=== PATIENT | female | born 1975 | race African-American/Black ===

== ENCOUNTER 2016-08-11 23:00 | Emergency (ER) | payer MEDICAID ==
[~2016-08-11] VITALS: Ht 152.4 cm; Wt 77.3 kg
[~2016-08-11 23:00] MED LIST: ALPR-392 MT; AM10 PO; AMLO5TAB88 PO; ASPI81TA2 PO; ATOR20TA PO; CLOP75TA2 PO; FURO20TA4 PO; GABA-531 PO; GLUCAGON; INSU3INS6 SUBCUT; LOSA25TA12 PO; METO50TA5 PO; OMEGA 3 ETHYL ESTERS PO; PANT40TA4 PO; TRAM50TA3 PO
[2016-08-11] MEDS ORDERED: ACETAMINOPHEN WITH CODEINE 300/30MG TABLET PO ONE (23:45)
[2016-08-11 23:55] LABS: BASOPHILS % 0.8 % (0.0-2.0); CHLORIDE 104 mEq/L (98-107); EOSINOPHILS % 2.2 % (0.0-5.0); HEMATOCRIT. 32.7 % (36.0-48.0); HEMOGLOBIN. 10.8 g/dL (12.0-16.0); INDEX HEMOLYSI 1 (1-3); INDEX ICTERIC 1 (1-4); INDEX LIPEMIC 1 (1-3); LYMPHOCYTES % 20.7 % (20.0-50.0); MEAN CORPUSCULAR HEMOGLOBIN 28.5 pg (28.0-32.0); MEAN CORPUSCULAR HGB CONC 32.9 g/dL (31.0-37.0); MEAN CORPUSCULAR VOLUME 86.6 fL (81.0-99.0); MONOCYTES % 5.9 % (2.0-8.0); NEUTROPHILS % 70.4 % (40.0-76.0); PLATELET 252 x1000/uL (130-400); RED BLOOD CELL COUNT 3.77 mill/uL (4.2-5.4); RED CELL DISTRIBUTION WIDTH 13.9 % (11.6-14.6); WHITE BLOOD COUNT 15.2 x1000/uL (4.5-11.0)
[2016-08-12 00:04] LABS: ALANINE AMINOTRANSFERASE 24 IU/L (13-61); ALBUMIN 2.3 g/dL (3.4-5.0); ANION GAP 13; CALCIUM 8.4 mg/dL (8.5-10.1); CARBON DIOXIDE 28 mEq/L (21-32); UREA NITROGEN BLOOD 22 mg/dL (7-21); eGFR 17 mL/min (>60)
[2016-08-12 01:18] VITALS: BP 147/81
== END 2016-08-12 01:45 | disposition home or self-care (01) ==
LOC: ER 23:02
DX: T82.9XXA Unspecified complication of cardiac and vascular prosthetic device, implant and graft, initial encounter (principal); E11.22 Type 2 diabetes mellitus with diabetic chronic kidney disease; I12.9 Hypertensive chronic kidney disease with stage 1 through stage 4 chronic kidney disease, or unspecified chronic kidney disease; N18.9 Chronic kidney disease, unspecified; E78.00 Pure hypercholesterolemia, unspecified; I25.2 Old myocardial infarction; Z88.0 Allergy status to penicillin; Z79.899 Other long term (current) drug therapy; Z79.82 Long term (current) use of aspirin; Z79.4 Long term (current) use of insulin; Z99.2 Dependence on renal dialysis
CPT/HCPCS: 36415; 71010; 80053; 85025; 99285

== ENCOUNTER 2016-10-04 08:15 | Day surgery (SDC) | payer MEDICAID ==
[~2016-10-04] VITALS: Ht 152.4 cm; Wt 72.6 kg
[~2016-10-04 08:15] MED LIST changes: +ASPI-1160 PO; -ASPI81TA2 PO; +CLOP75TA15 PO; -CLOP75TA2 PO
[2016-10-04] MEDS ORDERED: SODIUM CHLORIDE 0.9% 500 ML IV ONE (09:00)
[2016-10-04] MEDS ORDERED: THROMBIN (BOVINE) 5000 UNITS/VIAL TOP ONE (09:14)
[2016-10-04] MEDS ORDERED: GELATIN SPONGE,ABSORBABLE SZ 100 ONE (09:14)
[2016-10-04] MEDS ORDERED: BACITRACIN ZINC 15GM TUBE TOP ONE (09:14)
[2016-10-04] MEDS ORDERED: BUPIVACAINE HCL/PF 0.5% (5MG/ML) 10ML ONE (09:15)
[2016-10-04] MEDS ORDERED: BACITRACIN 50,000 UNITS/VIAL ONE (09:15)
[2016-10-04] MEDS ORDERED: HEPARIN SODIUM 1,000 UNIT/1ML VIAL IV ONE (09:15)
[2016-10-04] MEDS ORDERED: NORMAL SALINE 0.9% 10 ML SYR ONE (09:15)
[2016-10-04] MEDS ORDERED: LIDOCAINE HCL 1% 20ML VIAL (Pyxis) INJ ONE (09:15)
[2016-10-04 09:22] LABS: HCG SCREEN NEGATIVE
[2016-10-04] MEDS ORDERED: CEFAZOLIN SODIUM 1000MG/VIAL ONE (10:31)
[2016-10-04] MEDS ORDERED: FENTANYL CITRATE/PF 50MCG/ML 2ML VIAL ONE (10:34)
[2016-10-04] MEDS ORDERED: PROPOFOL 200MG/20ML VIAL IV ONE (10:34)
[2016-10-04] MEDS ORDERED: ONDANSETRON HCL 4MG/2ML VIAL ONE (10:49)
[2016-10-04] MEDS ORDERED: METOCLOPRAMIDE HCL 10MG/2ML VIAL ONE (10:49)
[2016-10-04] MEDS ORDERED: PAPAVERINE HCL 30 MG/ML 2ML IV ONE (10:51)
[2016-10-04] MEDS ORDERED: ONDANSETRON HCL 4MG/2ML VIAL IV PRN (11:15)
[2016-10-04] MEDS ORDERED: HEPARIN 100 UNITS/1 ML VIAL IVF ONE (11:30)
[2016-10-04] MEDS ORDERED: FOLI1TAB87 PO (11:44)
[2016-10-04] MEDS ORDERED: HYDR-523 PO (11:44)
[2016-10-04] MEDS ORDERED: CLON0.2T PO (11:44)
[2016-10-04] MEDS ORDERED: [UNRECOGNIZED DRUG - OTHER] (11:44)
[2016-10-04] MEDS ORDERED: FOLI1CAP6 PO (11:44)
[2016-10-04] MEDS ORDERED: INSLAN SQ (11:44)
[2016-10-04] MEDS: HYDROMORPHONE HCL/PF 2MG/ML CPJ IV PRN ×2 (12:53→12:59)
[2016-10-04 12:59] VITALS: BP 126/77
[2016-10-04] MEDS ORDERED: HEPARIN SODIUM 1,000 UNIT/1ML VIAL IV SCH (13:15)
== END 2016-10-04 14:45 | disposition home or self-care (01) ==
LOC: OR 08:15
PROVIDERS: ATTEND Surgery Vascular Surgery
DX: N18.6 End stage renal disease (principal); E78.5 Hyperlipidemia, unspecified; E11.22 Type 2 diabetes mellitus with diabetic chronic kidney disease; Z99.2 Dependence on renal dialysis; I25.10 Atherosclerotic heart disease of native coronary artery without angina pectoris; Z86.73 Personal history of transient ischemic attack (TIA), and cerebral infarction without residual deficits; K21.9 Gastro-esophageal reflux disease without esophagitis; E66.3 Overweight
CPT/HCPCS: 36415; 36821; 80048; 82962; 84703; 93005; A4216; J0690; J1170; J1644; J2405; J2440; J2765; J3010; J3490; J7040; J2704

== ENCOUNTER 2016-10-04 22:10 | Emergency (ER) | payer MEDICAID ==
[~2016-10-04] VITALS: Ht 152.4 cm; Wt 71.0 kg
[~2016-10-04 22:10] MED LIST changes: +CLON0.2T PO; +FOLI1CAP6 PO; +FOLI1TAB87 PO; +HYDR-523 PO; +INSLAN SQ; +[UNRECOGNIZED DRUG - OTHER]
[2016-10-05 00:12] LABS: BASOPHILS % 0.4 % (0.0-2.0); EOSINOPHILS % 0.4 % (0.0-5.0); HEMATOCRIT. 28.7 % (36.0-48.0); HEMOGLOBIN. 9.6 g/dL (12.0-16.0); LYMPHOCYTES % 18.7 % (20.0-50.0); MEAN CORPUSCULAR HEMOGLOBIN 29.8 pg (28.0-32.0); MEAN CORPUSCULAR VOLUME 89.5 fL (81.0-99.0); MEAN PLATELET VOLUME 8.1 fl (7.4-10.4); MONOCYTES % 5.9 % (2.0-8.0); NEUTROPHILS % 74.6 % (40.0-76.0); PLATELET 182 x1000/uL (130-400); RED BLOOD CELL COUNT 3.21 mill/uL (4.2-5.4); RED CELL DISTRIBUTION WIDTH 16.8 % (11.6-14.6)
[2016-10-05 02:35] VITALS: BP 130/84
== END 2016-10-05 02:52 | disposition home or self-care (01) ==
LOC: ER 22:15
DX: T82.838A Hemorrhage due to vascular prosthetic devices, implants and grafts, initial encounter (principal); N18.6 End stage renal disease; E11.22 Type 2 diabetes mellitus with diabetic chronic kidney disease; Z99.2 Dependence on renal dialysis; Y84.1 Kidney dialysis as the cause of abnormal reaction of the patient, or of later complication, without mention of misadventure at the time of the procedure; Z79.4 Long term (current) use of insulin; Z79.82 Long term (current) use of aspirin; Z88.0 Allergy status to penicillin; Z88.8 Allergy status to other drugs, medicaments and biological substances
CPT/HCPCS: 36415; 80048; 85025; 99284; Z7610

== ENCOUNTER 2017-01-11 10:47 | Inpatient (IN) | payer MEDICAID ==
[~2017-01-11] VITALS: Ht 149.9 cm; Wt 70.8 kg
[~2017-01-11 10:47] MED LIST changes: -ALPR-392 MT; +ALPR-392 PO; -FOLI1CAP6 PO; -FURO20TA4 PO; -GLUCAGON; -LOSA25TA12 PO; +LOSA50TA20 PO; -OMEGA 3 ETHYL ESTERS PO
[2017-01-11] MEDS ORDERED: SODIUM CHLORIDE 0.9% 250 ML IV ONE (11:02)
[2017-01-11 11:58] LABS: BASOPHILS % 0.9 % (0.0-2.0); EOSINOPHILS % 0.9 % (0.0-5.0); HEMATOCRIT. 34.7 % (36.0-48.0); MEAN CORPUSCULAR HEMOGLOBIN 33.3 pg (28.0-32.0); MEAN CORPUSCULAR VOLUME 96.6 fL (81.0-99.0); MEAN PLATELET VOLUME 7.5 fl (7.4-10.4); MONOCYTES % 6.3 % (2.0-8.0); NEUTROPHILS % 68.9 % (40.0-76.0); PLATELET 205 x1000/uL (130-400); RED CELL DISTRIBUTION WIDTH 15.6 % (11.6-14.6)
[2017-01-11 12:09] LABS: CARBON DIOXIDE 31 mEq/L (21-32); CHLORIDE 96 mEq/L (98-107)
[2017-01-11 12:13] LABS: TROPONIN I 0.12 ng/mL (0.00-0.04)
[2017-01-11] MEDS ORDERED: HYDROCODONE/ACETAMINOPHEN 5/325MG TABLET PO ONE (14:00)
[2017-01-11 17:33] VITALS: BP 148/85
[2017-01-11] MEDS ORDERED: DEXTROSE 50% WATER 50ML SYRINGE IV PRN (18:30)
[2017-01-11] MEDS ORDERED: CLONIDINE 0.1MG TABLET PO PRN (18:45)
[2017-01-11] MEDS ORDERED: ONDANSETRON HCL 4MG/2ML VIAL IV PRN (18:45)
[2017-01-11 19:46] LABS: TROPONIN I 0.14 ng/mL (0.00-0.04)
[2017-01-11 20:00] VITALS: BP 157/78
[2017-01-11] MEDS ORDERED: INFLUENZA VIRUS VACCINE 0.5ML SYR IM ONE (20:30)
[2017-01-11] MEDS: BLOOD SUGAR DIAGNOSTIC STRIP TEST SCH (20:49)
[2017-01-11] MEDS: ATORVASTATIN CALCIUM 20MG TABLET PO SCH (20:49)
[2017-01-11] MEDS: GABAPENTIN 300MG CAPSULE PO SCH (21:12)
[2017-01-11] MEDS: INSULIN LISPRO 100 UNITS/ML SUBCUT SCH (21:15)
[2017-01-12] VITALS: BP 161/75
[2017-01-12 03:56] LABS: CREATINE KINASE MB FRACTION 0.7 ng/mL (0.5-3.6); TROPONIN I 0.12 ng/mL (0.00-0.04)
[2017-01-12 04:00] VITALS: BP 151/91
[2017-01-12] MEDS: GABAPENTIN 300MG CAPSULE PO SCH ×3 (06:05→22:45)
[2017-01-12] MEDS: INSULIN LISPRO 100 UNITS/ML SUBCUT SCH ×4 (06:21→20:43)
[2017-01-12] MEDS: BLOOD SUGAR DIAGNOSTIC STRIP TEST SCH ×4 (06:21→20:51)
[2017-01-12 07:05] LABS: BASOPHILS % 0.8 % (0.0-2.0); EOSINOPHILS % 2.8 % (0.0-5.0); HEMATOCRIT. 34.5 % (36.0-48.0); HEMOGLOBIN. 11.7 g/dL (12.0-16.0); LYMPHOCYTES % 46.8 % (20.0-50.0); MEAN CORPUSCULAR HEMOGLOBIN 33.5 pg (28.0-32.0); MEAN PLATELET VOLUME 7.7 fl (7.4-10.4); MONOCYTES % 8.1 % (2.0-8.0); NEUTROPHILS % 41.5 % (40.0-76.0); PLATELET 202 x1000/uL (130-400); RED BLOOD CELL COUNT 3.48 mill/uL (4.2-5.4)
[2017-01-12 08:00] VITALS: BP 148/76
[2017-01-12 08:15] LABS: CARBON DIOXIDE 29 mEq/L (21-32); CHLORIDE 97 mEq/L (98-107)
[2017-01-12] MEDS: AMLODIPINE 5MG TABLET PO SCH (08:35)
[2017-01-12] MEDS: CLOPIDOGREL 75MG TABLET PO SCH (08:35)
[2017-01-12] MEDS: HYDROCODONE/ACETAMINOPHEN 5/325MG TABLET PO PRN (08:36)
[2017-01-12] MEDS ORDERED: METOPROLOL TARTRATE 50MG TABLET PO SCH (09:00)
[2017-01-12] MEDS ORDERED: VANCOMYCIN 1 G PREMIX 200 ML IV SCH (10:00)
[2017-01-12 12:00] VITALS: BP 140/69
[2017-01-12] MEDS: ASPIRIN 81MG EC TABLET PO SCH (12:24)
[2017-01-12] MEDS ORDERED: SEVE800T8 PO (14:38)
[2017-01-12] MEDS ORDERED: FISH1CAP34 PO (14:48)
[2017-01-12 16:00] VITALS: BP 139/74
[2017-01-12 20:00] VITALS: BP 128/82
[2017-01-12 20:48] LABS: CLARITY URINE TURBID (CLEAR); COLOR URINE YELLOW (YELLOW); GLUCOSE URINE 1+ (NEGATIVE); KETONES URINE TRACE (NEGATIVE); LEUKOCYTE ESTERASE URINE 1+ (NEGATIVE); NITRITE URINE NEGATIVE (NEGATIVE); OCCULT BLOOD URINE NEGATIVE (NEGATIVE); PROTEIN URINE 4+ (NEGATIVE); SPECIFIC GRAVITY URINE 1.025 (1.005-1.030)
[2017-01-12] MEDS: ATORVASTATIN CALCIUM 20MG TABLET PO SCH (20:48)
[2017-01-12] MEDS: METOPROLOL TARTRATE 25MG TABLET PO SCH (20:49)
[2017-01-13] VITALS: BP 132/85
[2017-01-13 04:00] VITALS: BP 126/78
[2017-01-13] MEDS: HYDROCODONE/ACETAMINOPHEN 5/325MG TABLET PO PRN ×2 (04:36→15:30)
[2017-01-13 05:51] LABS: BASOPHILS % 0.8 % (0.0-2.0); EOSINOPHILS % 3.3 % (0.0-5.0); HEMATOCRIT. 33.9 % (36.0-48.0); HEMOGLOBIN. 11.6 g/dL (12.0-16.0); LYMPHOCYTES % 30.8 % (20.0-50.0); MEAN CORPUSCULAR HEMOGLOBIN 33.6 pg (28.0-32.0); MEAN CORPUSCULAR VOLUME 98.6 fL (81.0-99.0); MEAN PLATELET VOLUME 7.6 fl (7.4-10.4); MONOCYTES % 8.3 % (2.0-8.0); NEUTROPHILS % 56.8 % (40.0-76.0); PLATELET 226 x1000/uL (130-400); RED BLOOD CELL COUNT 3.44 mill/uL (4.2-5.4); RED CELL DISTRIBUTION WIDTH 15.7 % (11.6-14.6)
[2017-01-13] MEDS: GABAPENTIN 300MG CAPSULE PO SCH ×2 (06:25→13:25)
[2017-01-13] MEDS: INSULIN LISPRO 100 UNITS/ML SUBCUT SCH ×4 (06:26→20:36)
[2017-01-13] MEDS: BLOOD SUGAR DIAGNOSTIC STRIP TEST SCH ×4 (07:36→20:39)
[2017-01-13 08:00] VITALS: BP 131/82
[2017-01-13] MEDS: METOPROLOL TARTRATE 25MG TABLET PO SCH ×2 (09:00→20:40)
[2017-01-13] MEDS: ASPIRIN 81MG EC TABLET PO SCH (10:06)
[2017-01-13] MEDS: AMLODIPINE 5MG TABLET PO SCH (10:06)
[2017-01-13] MEDS: CLOPIDOGREL 75MG TABLET PO SCH (10:06)
[2017-01-13 20:00] VITALS: BP 108/52
[2017-01-13] MEDS: ATORVASTATIN CALCIUM 20MG TABLET PO SCH (20:34)
[2017-01-14] VITALS: BP 128/69
[2017-01-14] MEDS: GABAPENTIN 300MG CAPSULE PO SCH ×3 (02:27→14:37)
[2017-01-14] MEDS: INSULIN DETEMIR UD 100 UNITS/ML SYR SUBCUT SCH ×3 (02:29→21:17)
[2017-01-14 04:00] VITALS: BP 130/86
[2017-01-14] MEDS: BLOOD SUGAR DIAGNOSTIC STRIP TEST SCH ×4 (06:42→19:49)
[2017-01-14] MEDS: INSULIN LISPRO 100 UNITS/ML SUBCUT SCH ×4 (06:42→21:17)
[2017-01-14] MEDS: HYDROCODONE/ACETAMINOPHEN 5/325MG TABLET PO PRN ×3 (07:12→21:24)
[2017-01-14 08:00] VITALS: BP 143/76
[2017-01-14] MEDS: ASPIRIN 81MG EC TABLET PO SCH (08:13)
[2017-01-14] MEDS: CLOPIDOGREL 75MG TABLET PO SCH (08:13)
[2017-01-14] MEDS: AMLODIPINE 5MG TABLET PO SCH (08:14)
[2017-01-14] MEDS: METOPROLOL TARTRATE 25MG TABLET PO SCH ×2 (08:14→21:15)
[2017-01-14 09:19] LABS: BASOPHILS % 0.7 % (0.0-2.0); EOSINOPHILS % 3.9 % (0.0-5.0); HEMATOCRIT. 32.9 % (36.0-48.0); LYMPHOCYTES % 31.9 % (20.0-50.0); MEAN CORPUSCULAR HEMOGLOBIN 33.5 pg (28.0-32.0); MEAN CORPUSCULAR VOLUME 99.5 fL (81.0-99.0); MEAN PLATELET VOLUME 8.5 fl (7.4-10.4); MONOCYTES % 7.1 % (2.0-8.0); NEUTROPHILS % 56.4 % (40.0-76.0); PLATELET 149 x1000/uL (130-400); RED CELL DISTRIBUTION WIDTH 15.6 % (11.6-14.6)
[2017-01-14 12:00] VITALS: BP 141/68
[2017-01-14 16:00] VITALS: BP 117/65
[2017-01-14 20:00] VITALS: BP 134/60
[2017-01-14] MEDS: ATORVASTATIN CALCIUM 20MG TABLET PO SCH (21:14)
[2017-01-15] VITALS: BP 135/56
[2017-01-15 04:30] VITALS: BP 146/70
[2017-01-15] MEDS: HYDROCODONE/ACETAMINOPHEN 5/325MG TABLET PO PRN ×3 (05:50→20:57)
[2017-01-15] MEDS: INSULIN LISPRO 100 UNITS/ML SUBCUT SCH ×4 (05:51→20:59)
[2017-01-15] MEDS: BLOOD SUGAR DIAGNOSTIC STRIP TEST SCH ×4 (06:29→20:30)
[2017-01-15 06:53] LABS: EOSINOPHILS % 3.7 % (0.0-5.0); HEMATOCRIT. 30.5 % (36.0-48.0); HEMOGLOBIN. 10.5 g/dL (12.0-16.0); LYMPHOCYTES % 32.5 % (20.0-50.0); MEAN CORPUSCULAR HEMOGLOBIN 33.8 pg (28.0-32.0); MEAN CORPUSCULAR VOLUME 97.9 fL (81.0-99.0); MEAN PLATELET VOLUME 8.3 fl (7.4-10.4); MONOCYTES % 8.1 % (2.0-8.0); NEUTROPHILS % 54.7 % (40.0-76.0); PLATELET 173 x1000/uL (130-400); RED BLOOD CELL COUNT 3.11 mill/uL (4.2-5.4); RED CELL DISTRIBUTION WIDTH 15.6 % (11.6-14.6)
[2017-01-15 08:00] VITALS: BP 152/74
[2017-01-15] MEDS: CLOPIDOGREL 75MG TABLET PO SCH (08:22)
[2017-01-15] MEDS: GABAPENTIN 300MG CAPSULE PO SCH ×2 (08:23→20:56)
[2017-01-15] MEDS: ASPIRIN 81MG EC TABLET PO SCH (08:23)
[2017-01-15] MEDS: METOPROLOL TARTRATE 25MG TABLET PO SCH ×2 (08:23→20:56)
[2017-01-15] MEDS: AMLODIPINE 5MG TABLET PO SCH (08:23)
[2017-01-15] MEDS ORDERED: MORPHINE SULFATE 2 MG/ML CPJ (NOT FOR IM USE) IV PRN (10:00)
[2017-01-15] MEDS: MORPHINE SULFATE 4 MG/ML CPJ (NOT FOR IM USE) IV PRN ×2 (10:23→14:32)
[2017-01-15] MEDS: INSULIN DETEMIR UD 100 UNITS/ML SYR SUBCUT SCH ×2 (10:24→21:00)
[2017-01-15 14:00] VITALS: BP 150/79
[2017-01-15 20:00] VITALS: BP 146/67
[2017-01-15] MEDS: ATORVASTATIN CALCIUM 20MG TABLET PO SCH (20:56)
[2017-01-16] VITALS: BP 112/57
[2017-01-16 04:00] VITALS: BP 133/69
[2017-01-16] MEDS: BLOOD SUGAR DIAGNOSTIC STRIP TEST SCH ×4 (06:19→21:00)
[2017-01-16 06:57] LABS: INR 0.9; PROTHROMBIN TIME 9.4 sec (9.4-11.6)
[2017-01-16 07:11] LABS: BASOPHILS % 0.7 % (0.0-2.0); EOSINOPHILS % 2.6 % (0.0-5.0); HEMATOCRIT. 29.5 % (36.0-48.0); HEMOGLOBIN. 10.1 g/dL (12.0-16.0); LYMPHOCYTES % 24.6 % (20.0-50.0); MEAN CORPUSCULAR HEMOGLOBIN 33.8 pg (28.0-32.0); MEAN CORPUSCULAR VOLUME 98.4 fL (81.0-99.0); MEAN PLATELET VOLUME 8.5 fl (7.4-10.4); NEUTROPHILS % 63.1 % (40.0-76.0); PLATELET 191 x1000/uL (130-400); RED CELL DISTRIBUTION WIDTH 15.7 % (11.6-14.6)
[2017-01-16] MEDS: INSULIN LISPRO 100 UNITS/ML SUBCUT SCH ×4 (07:40→21:21)
[2017-01-16 08:00] VITALS: BP 140/88
[2017-01-16] MEDS: HYDROCODONE/ACETAMINOPHEN 5/325MG TABLET PO PRN (08:00)
[2017-01-16] MEDS: METOPROLOL TARTRATE 25MG TABLET PO SCH ×2 (09:00→21:20)
[2017-01-16] MEDS: AMLODIPINE 5MG TABLET PO SCH (09:00)
[2017-01-16] MEDS: CLOPIDOGREL 75MG TABLET PO SCH (10:38)
[2017-01-16] MEDS: ASPIRIN 81MG EC TABLET PO SCH (10:38)
[2017-01-16] MEDS: GABAPENTIN 300MG CAPSULE PO SCH ×2 (10:38→21:20)
[2017-01-16] MEDS: INSULIN DETEMIR UD 100 UNITS/ML SYR SUBCUT SCH ×2 (10:39→21:22)
[2017-01-16 11:30] VITALS: BP 140/82
[2017-01-16 16:00] VITALS: BP 138/74
[2017-01-16] MEDS: MORPHINE SULFATE 4 MG/ML CPJ (NOT FOR IM USE) IV PRN (19:53)
[2017-01-16 20:00] VITALS: BP 146/66
[2017-01-16] MEDS ORDERED: HYDROCODONE/ACETAMINOPHEN 5/325MG TABLET PO PRN (20:37)
[2017-01-16] MEDS: ATORVASTATIN CALCIUM 20MG TABLET PO SCH (21:19)
[2017-01-17] VITALS (19 sets, daily range): BP systolic 114–143; BP diastolic 55–94
[2017-01-17] MEDS: MORPHINE SULFATE 4 MG/ML CPJ (NOT FOR IM USE) IV PRN (04:05)
[2017-01-17] MEDS: INSULIN LISPRO 100 UNITS/ML SUBCUT SCH ×3 (06:37→17:05)
[2017-01-17] MEDS: BLOOD SUGAR DIAGNOSTIC STRIP TEST SCH ×3 (06:37→17:08)
[2017-01-17 06:41] LABS: BASOPHILS % 0.7 % (0.0-2.0); EOSINOPHILS % 2.2 % (0.0-5.0); HEMATOCRIT. 31.3 % (36.0-48.0); HEMOGLOBIN. 10.8 g/dL (12.0-16.0); LYMPHOCYTES % 21.7 % (20.0-50.0); MEAN CORPUSCULAR HEMOGLOBIN 33.9 pg (28.0-32.0); MEAN PLATELET VOLUME 8.7 fl (7.4-10.4); MONOCYTES % 10.8 % (2.0-8.0); NEUTROPHILS % 64.6 % (40.0-76.0); PLATELET 158 x1000/uL (130-400); RED BLOOD CELL COUNT 3.19 mill/uL (4.2-5.4); RED CELL DISTRIBUTION WIDTH 15.9 % (11.6-14.6)
[2017-01-17] MEDS: ASPIRIN 81MG EC TABLET PO SCH (08:57)
[2017-01-17] MEDS: METOPROLOL TARTRATE 25MG TABLET PO SCH (08:57)
[2017-01-17] MEDS: GABAPENTIN 300MG CAPSULE PO SCH (08:58)
[2017-01-17] MEDS: CLOPIDOGREL 75MG TABLET PO SCH (08:58)
[2017-01-17] MEDS: AMLODIPINE 5MG TABLET PO SCH (08:58)
[2017-01-17] MEDS ORDERED: CLINDAMYCIN 600 MG in DEXTROSE 5% WATER 50 ML IV NR (09:30)
[2017-01-17] MEDS: INSULIN DETEMIR UD 100 UNITS/ML SYR SUBCUT SCH (10:00)
[2017-01-17] MEDS ORDERED: LIDOCAINE HCL 1% 20ML VIAL (Pyxis) INJ ONE (10:38)
[2017-01-17] MEDS ORDERED: SODIUM BICARBONATE 4% (2.4MEQ) 5ML VIAL IV ONE (10:38)
[2017-01-17] MEDS ORDERED: HEPARIN 1000 UNITS/ML 10ML ONE (10:38)
[2017-01-17] MEDS ORDERED: IOHEXOL-300 100 ML BOTTLE ONE (10:48)
[2017-01-17] MEDS ORDERED: FENTANYL CITRATE/PF 50MCG/ML 2ML VIAL ONE ×2 (10:56→11:57)
[2017-01-17] MEDS ORDERED: HEPARIN 5000 UNITS/ML VIAL IV SCH (11:15)
[2017-01-17] MEDS ORDERED: MIDAZOLAM HCL 2 MG/2 ML VIAL ONE (11:36)
[2017-01-17] MEDS ORDERED: MIDAZOLAM HCL 5 MG/5 ML VIAL IV ONE (12:00)
[2017-01-17] MEDS ORDERED: FENTANYL CITRATE/PF 50MCG/ML 2ML VIAL IV ONE (12:15)
[2017-01-17] MEDS ORDERED: MIDAZOLAM HCL 2 MG/2 ML VIAL IV ONE (12:15)
== END 2017-01-17 19:50 | disposition home or self-care (01) | DRG 182 ==
LOC: ER 11:09 → CANRESERV 15:27 → ENRESERV 15:27 → 8WST 16:27 → ENRESERV 16:27
PROVIDERS: ADMIT Internal Medicine; ATTEND Internal Medicine
PROC: 057A3ZZ Dilation of Left Brachial Vein, Percutaneous Approach (ICD-10-PCS; principal; 2017-01-17)
PROC: 05CA3ZZ Extirpation of Matter from Left Brachial Vein, Percutaneous Approach (ICD-10-PCS; 2017-01-17)
DX: T82.818A Embolism due to vascular prosthetic devices, implants and grafts, initial encounter (principal); I12.0 Hypertensive chronic kidney disease with stage 5 chronic kidney disease or end stage renal disease; N18.6 End stage renal disease; E11.22 Type 2 diabetes mellitus with diabetic chronic kidney disease; Y83.2 Surgical operation with anastomosis, bypass or graft as the cause of abnormal reaction of the patient, or of later complication, without mention of misadventure at the time of the procedure; I25.118 Atherosclerotic heart disease of native coronary artery with other forms of angina pectoris; E44.1 Mild protein-calorie malnutrition; E11.40 Type 2 diabetes mellitus with diabetic neuropathy, unspecified; E78.5 Hyperlipidemia, unspecified; I69.354 Hemiplegia and hemiparesis following cerebral infarction affecting left non-dominant side; Z79.02 Long term (current) use of antithrombotics/antiplatelets; Z79.899 Other long term (current) drug therapy; Z87.891 Personal history of nicotine dependence; Z95.5 Presence of coronary angioplasty implant and graft; Z99.2 Dependence on renal dialysis; Z79.82 Long term (current) use of aspirin; Z79.4 Long term (current) use of insulin; Z88.0 Allergy status to penicillin; Z88.8 Allergy status to other drugs, medicaments and biological substances; Y92.89 Other specified places as the place of occurrence of the external cause; Z68.31 Body mass index [BMI] 31.0-31.9, adult
CPT/HCPCS: 36415; 36905; 76937; 80048; 80053; 81001; 82550; 82553; 82962; 83735; 83880; 84484; 85025; 85610; 85730; 87040; 87086; 90686; 93005; 93306; 96360; 99285; C1725; C1766; C1769; C1887; C2630; J1644; J1815; J2250; J2270; J2405; J3010; J3370; J3490; J7030; J7040; J7050; J7060; Q9967

== ENCOUNTER 2017-01-23 19:33 | Inpatient (IN) | payer MEDICAID, OTHER ==
[~2017-01-23] VITALS: Ht 165.1 cm; Wt 83.9 kg
[~2017-01-23 19:33] MED LIST changes: +FISH1CAP34 PO; +SEVE800T8 PO
[2017-01-23] MEDS ORDERED: MORPHINE SULFATE 4 MG/ML CPJ (NOT FOR IM USE) IV STA (21:30)
[2017-01-23] MEDS ORDERED: ONDANSETRON HCL 4MG/2ML VIAL IV STA (21:30)
[2017-01-23 21:39] LABS: BASOPHILS % 0.6 % (0.0-2.0); EOSINOPHILS % 1.7 % (0.0-5.0); HEMATOCRIT. 32.1 % (36.0-48.0); HEMOGLOBIN. 10.9 g/dL (12.0-16.0); LYMPHOCYTES % 27.4 % (20.0-50.0); MEAN CORPUSCULAR HEMOGLOBIN 33.3 pg (28.0-32.0); MEAN CORPUSCULAR VOLUME 98.4 fL (81.0-99.0); MEAN PLATELET VOLUME 7.9 fl (7.4-10.4); MONOCYTES % 5.8 % (2.0-8.0); NEUTROPHILS % 64.5 % (40.0-76.0); PLATELET 244 x1000/uL (130-400); RED BLOOD CELL COUNT 3.27 mill/uL (4.2-5.4); RED CELL DISTRIBUTION WIDTH 15.4 % (11.6-14.6)
[2017-01-23 21:40] LABS: HCG SCREEN NEGATIVE
[2017-01-23 22:15] LABS: PARTIAL THROMBOPLASTIN TIME 25.6 sec (23.4-31.0); PROTHROMBIN TIME 10.1 sec (9.4-11.6)
[2017-01-23 22:22] LABS: CARBON DIOXIDE 29 mEq/L (21-32); CHLORIDE 102 mEq/L (98-107); TROPONIN I 0.04 ng/mL (0.00-0.04)
[2017-01-23] MEDS ORDERED: MORPHINE SULFATE 2 MG/ML CPJ (NOT FOR IM USE) IV NR (23:00)
[2017-01-24 03:00] VITALS: BP 160/77
[2017-01-24 03:30] VITALS: BP 100/55
[2017-01-24] MEDS ORDERED: DEXTROSE 50% WATER 50ML SYRINGE IV PRN (06:45)
[2017-01-24] MEDS ORDERED: HYDROCODONE/ACETAMINOPHEN 5/325MG TABLET PO PRN (06:45)
[2017-01-24] MEDS: BLOOD SUGAR DIAGNOSTIC STRIP TEST SCH ×4 (07:00→20:49)
[2017-01-24] MEDS: INSULIN LISPRO 100 UNITS/ML SUBCUT SCH ×4 (07:50→20:49)
[2017-01-24 08:00] VITALS: BP 138/65
[2017-01-24 11:13] LABS: BASOPHILS % 0.8 % (0.0-2.0); EOSINOPHILS % 2.3 % (0.0-5.0); HEMATOCRIT. 34.9 % (36.0-48.0); HEMOGLOBIN. 11.7 g/dL (12.0-16.0); LYMPHOCYTES % 31.2 % (20.0-50.0); MEAN CORPUSCULAR HEMOGLOBIN 33.3 pg (28.0-32.0); MEAN CORPUSCULAR VOLUME 99.3 fL (81.0-99.0); MEAN PLATELET VOLUME 7.7 fl (7.4-10.4); MONOCYTES % 6.3 % (2.0-8.0); NEUTROPHILS % 59.4 % (40.0-76.0); PLATELET 283 x1000/uL (130-400); RED BLOOD CELL COUNT 3.51 mill/uL (4.2-5.4); RED CELL DISTRIBUTION WIDTH 15.8 % (11.6-14.6)
[2017-01-24 12:00] VITALS: BP 163/80
[2017-01-24 12:07] LABS: CARBON DIOXIDE 30 mEq/L (21-32); CHLORIDE 101 mEq/L (98-107)
[2017-01-24] MEDS: LACTULOSE 20G/30ML UDC PO PRN (13:04)
[2017-01-24] MEDS ORDERED: LIDOCAINE HCL 1% 20ML VIAL (Pyxis) INJ ONE (15:12)
[2017-01-24] MEDS ORDERED: SODIUM BICARBONATE 4% (2.4MEQ) 5ML VIAL IV ONE (15:12)
[2017-01-24 16:00] VITALS: BP 153/71
[2017-01-24 20:00] VITALS: BP 151/86
[2017-01-24] MEDS ORDERED: AMITRIPTYLINE 10MG TABLET PO SCH (21:00)
[2017-01-24] MEDS ORDERED: ATORVASTATIN CALCIUM 20MG TABLET PO SCH (21:00)
[2017-01-24] MEDS: CLONIDINE 0.2MG TABLET PO SCH (21:11)
[2017-01-24] MEDS: AMLODIPINE 5MG TABLET PO SCH (21:12)
[2017-01-24] MEDS: METOPROLOL TARTRATE 50MG TABLET PO SCH (21:12)
[2017-01-24] MEDS: GABAPENTIN 300MG CAPSULE PO SCH (21:12)
[2017-01-24] MEDS: INSULIN DETEMIR UD 100 UNITS/ML SYR SUBCUT SCH (21:24)
[2017-01-25] VITALS: BP 133/71
[2017-01-25 04:00] VITALS: BP 109/55
[2017-01-25] MEDS: GABAPENTIN 300MG CAPSULE PO SCH ×2 (06:22→14:05)
[2017-01-25] MEDS: BLOOD SUGAR DIAGNOSTIC STRIP TEST SCH ×2 (06:26→12:20)
[2017-01-25] MEDS: INSULIN LISPRO 100 UNITS/ML SUBCUT SCH ×2 (06:59→12:35)
[2017-01-25] MEDS ORDERED: PANTOPRAZOLE 40MG DR TABLET PO SCH (07:20)
[2017-01-25] MEDS ORDERED: LIDOCAINE HCL 1% 20ML VIAL (Pyxis) INJ ONE (07:37)
[2017-01-25] MEDS ORDERED: SODIUM BICARBONATE 4% (2.4MEQ) 5ML VIAL IV ONE (07:38)
[2017-01-25 08:00] VITALS: BP 110/55
[2017-01-25] MEDS: CLONIDINE 0.2MG TABLET PO SCH (08:30)
[2017-01-25] MEDS ORDERED: ASPIRIN 81MG TABLET PO SCH (09:00)
[2017-01-25] MEDS ORDERED: CLOPIDOGREL 75MG TABLET PO SCH (09:00)
[2017-01-25] MEDS: METOPROLOL TARTRATE 50MG TABLET PO SCH (09:00)
[2017-01-25] MEDS: AMLODIPINE 5MG TABLET PO SCH (09:00)
[2017-01-25] MEDS ORDERED: LOSARTAN POTASSIUM 50 MG TABLET PO SCH (09:00)
[2017-01-25] MEDS: SEVELAMER CARBONATE 800 MG TABLET PO SCH ×2 (09:16→12:35)
[2017-01-25] MEDS: INSULIN DETEMIR UD 100 UNITS/ML SYR SUBCUT SCH (09:23)
[2017-01-25] MEDS: LACTULOSE 20G/30ML UDC PO PRN (09:32)
[2017-01-25 12:00] VITALS: BP 114/49
[2017-01-25 15:21] VITALS: BP 114/49
== END 2017-01-25 16:00 | disposition home or self-care (01) | DRG 254 ==
LOC: ER 21:02 → 6EST 22:55 → EDBEDREQ 23:58 → ENRESERV 01-24 00:26
PROVIDERS: ADMIT Internal Medicine; ATTEND Internal Medicine
DX: K59.00 Constipation, unspecified (principal); I13.2 Hypertensive heart and chronic kidney disease with heart failure and with stage 5 chronic kidney disease, or end stage renal disease; N18.6 End stage renal disease; I42.9 Cardiomyopathy, unspecified; E11.22 Type 2 diabetes mellitus with diabetic chronic kidney disease; I50.9 Heart failure, unspecified; Z99.2 Dependence on renal dialysis; Z88.0 Allergy status to penicillin; Z88.8 Allergy status to other drugs, medicaments and biological substances; Z79.82 Long term (current) use of aspirin; Z79.4 Long term (current) use of insulin; Z79.02 Long term (current) use of antithrombotics/antiplatelets; Z79.899 Other long term (current) drug therapy
CPT/HCPCS: 36415; 36589; 74176; 80053; 82962; 83690; 83735; 84100; 84484; 84703; 85025; 85610; 85730; 93005; 96374; 96375; 99285; J1815; J2270; J2405; J3490

== ENCOUNTER 2017-06-16 06:04 | Inpatient (IN) | payer MEDICARE, MEDICAID ==
[~2017-06-16] VITALS: Ht 147.3 cm; Wt 73.0 kg
[~2017-06-16 06:04] MED LIST changes: +METO-539 PO; -METO50TA5 PO
[2017-06-16 07:14] LABS: BASOPHILS % 1.2 % (0.0-2.0); EOSINOPHILS % 2.3 % (0.0-5.0); HEMATOCRIT. 32.8 % (36.0-48.0); HEMOGLOBIN. 11.1 g/dL (12.0-16.0); LYMPHOCYTES % 22.3 % (20.0-50.0); MEAN CORPUSCULAR HEMOGLOBIN 32.4 pg (28.0-32.0); MEAN CORPUSCULAR VOLUME 95.9 fL (81.0-99.0); MEAN PLATELET VOLUME 8.2 fl (7.4-10.4); MONOCYTES % 6.4 % (2.0-8.0); NEUTROPHILS % 67.8 % (40.0-76.0); PLATELET 199 x1000/uL (130-400); RED BLOOD CELL COUNT 3.42 mill/uL (4.2-5.4); RED CELL DISTRIBUTION WIDTH 15.8 % (11.6-14.6)
[2017-06-16 07:27] LABS: INR 0.9; PROTHROMBIN TIME 9.5 sec (9.4-11.6)
[2017-06-16 07:30] LABS: CHLORIDE 95 mEq/L (98-107)
[2017-06-16] MEDS: NITROGLYCERIN 0.4MG TABLET SL SL PRN ×3 (09:05→09:24)
[2017-06-16] MEDS ORDERED: ONDANSETRON HCL 4MG/2ML VIAL IV ONE (09:30)
[2017-06-16] MEDS ORDERED: MORPHINE SULFATE 4 MG/ML CPJ (NOT FOR IM USE) IV ONE (09:30)
[2017-06-16] MEDS ORDERED: CLONIDINE 0.1MG TABLET PO PRN (11:00)
[2017-06-16] MEDS ORDERED: DOCUSATE SODIUM 100MG CAPSULE PO PRN (11:00)
[2017-06-16] MEDS ORDERED: ACETAMINOPHEN 325MG TABLET PO PRN (11:00)
[2017-06-16] MEDS ORDERED: HYDROCODONE/ACETAMINOPHEN 10/325MG TABLET PO PRN (14:46)
[2017-06-16] MEDS ORDERED: REGADENOSON 0.4 MG/5 ML IV ONE (16:45)
[2017-06-16] MEDS ORDERED: LORAZEPAM 0.5MG TABLET PO PRN (20:00)
[2017-06-16] MEDS ORDERED: NA PHOS,M-B/NA PHOS,DI-BA ENEMA 118ML PR PRN (20:00)
[2017-06-16] MEDS ORDERED: IPRATROPIUM/ALBUTEROL 0.5-3(2.5)MG/3ML NEB INH PRN (20:00)
[2017-06-16] MEDS ORDERED: MAGNESIUM/ALUMINUM HYDROXIDE/SIMETHICONE 30ML UDC PO PRN (20:00)
[2017-06-16] MEDS ORDERED: ONDANSETRON HCL 4MG/2ML VIAL IV PRN (20:00)
[2017-06-16] MEDS ORDERED: MORPHINE SULFATE 4 MG/ML CPJ (NOT FOR IM USE) IV PRN (20:00)
[2017-06-16] MEDS ORDERED: ATORVASTATIN CALCIUM 20MG TABLET PO SCH (21:00)
[2017-06-16 21:25] VITALS: BP 171/96
[2017-06-16] MEDS ORDERED: DEXTROSE 50% WATER 50ML SYRINGE IV PRN (23:15)
[2017-06-17] VITALS (7 sets, daily range): BP systolic 135–171; BP diastolic 58–84
[2017-06-17] MEDS: BLOOD SUGAR DIAGNOSTIC STRIP TEST SCH ×3 (06:17→16:17)
[2017-06-17] MEDS: INSULIN LISPRO 100 UNITS/ML SUBCUT SCH ×2 (06:58→12:50)
[2017-06-17 07:06] LABS: BASOPHILS % 0.8 % (0.0-2.0); EOSINOPHILS % 3.6 % (0.0-5.0); HEMATOCRIT. 29.8 % (36.0-48.0); LYMPHOCYTES % 39.5 % (20.0-50.0); MEAN CORPUSCULAR HEMOGLOBIN 32.3 pg (28.0-32.0); MEAN CORPUSCULAR VOLUME 96.6 fL (81.0-99.0); MEAN PLATELET VOLUME 8.4 fl (7.4-10.4); NEUTROPHILS % 49.1 % (40.0-76.0); PLATELET 188 x1000/uL (130-400); RED BLOOD CELL COUNT 3.09 mill/uL (4.2-5.4); RED CELL DISTRIBUTION WIDTH 15.9 % (11.6-14.6)
[2017-06-17 07:19] LABS: CHLORIDE 98 mEq/L (98-107)
[2017-06-17 07:41] LABS: HDL CHOLESTEROL 32 mg/dL (40-59); LDL CHOLESTEROL 115 mg/dL (5-100); T4 FREE 1.13 ng/dL (0.76-1.46)
[2017-06-17] MEDS ORDERED: AMLODIPINE 5MG TABLET PO SCH ×2 (09:00→13:27)
[2017-06-17] MEDS ORDERED: ASPIRIN 81MG EC TABLET PO SCH (09:00)
[2017-06-17] MEDS: CLOPIDOGREL 75MG TABLET PO SCH ×2 (09:03→16:22)
[2017-06-17] MEDS ORDERED: FERR325T6 PO (09:43)
[2017-06-17] MEDS ORDERED: MEDICATION NOT ON FORMULARY EA (Ferrous Sulfate 325 MG) PO SCH (11:15)
[2017-06-17] MEDS ORDERED: MEDICATION NOT ON FORMULARY EA (Folic Acid/Vitamin B Comp W-C (Rena-Vite Rx Tablet) 1 MG PO SCH (11:15)
[2017-06-17] MEDS ORDERED: INSULIN GLARGINE UD 100 UNITS/ML SYR SUBCUT SCH ×2 (11:30→22:00)
[2017-06-17] MEDS ORDERED: CLONIDINE 0.2MG TABLET PO SCH (13:29)
[2017-06-17] MEDS ORDERED: SEVELAMER CARBONATE 800 MG TABLET PO SCH (13:30)
[2017-06-17] MEDS ORDERED: FERROUS SULFATE 325MG TABLET PO SCH (13:34)
[2017-06-17] MEDS ORDERED: FOLIC ACID/VITAMIN B COMP W-C TABLET PO SCH (13:43)
[2017-06-17] MEDS ORDERED: GABAPENTIN 300MG CAPSULE PO SCH (14:00)
[2017-06-17 15:26] LABS: BASOPHILS % 0.6 % (0.0-2.0); EOSINOPHILS % 2.8 % (0.0-5.0); HEMATOCRIT. 36.2 % (36.0-48.0); HEMOGLOBIN. 12.2 g/dL (12.0-16.0); LYMPHOCYTES % 27.2 % (20.0-50.0); MEAN CORPUSCULAR HEMOGLOBIN 32.1 pg (28.0-32.0); MEAN CORPUSCULAR VOLUME 95.5 fL (81.0-99.0); MEAN PLATELET VOLUME 8.4 fl (7.4-10.4); MONOCYTES % 6.6 % (2.0-8.0); NEUTROPHILS % 62.8 % (40.0-76.0); PLATELET 192 x1000/uL (130-400); RED BLOOD CELL COUNT 3.79 mill/uL (4.2-5.4); RED CELL DISTRIBUTION WIDTH 15.6 % (11.6-14.6)
[2017-06-17] MEDS ORDERED: ATORVASTATIN CALCIUM 20MG TABLET PO SCH (21:00)
[2017-06-18] MEDS ORDERED: ASPIRIN 81MG TABLET PO SCH (09:00)
[2017-06-18] MEDS ORDERED: INSULIN GLARGINE UD 100 UNITS/ML SYR SUBCUT SCH (10:00)
== END 2017-06-17 17:40 | disposition home or self-care (01) | DRG 205 ==
LOC: ER 06:14 → 6WST 07:24 → EDBEDREQ 10:58 → ENRESERV 19:19
PROVIDERS: ADMIT Internal Medicine; ATTEND Internal Medicine
DX: M94.0 Chondrocostal junction syndrome [Tietze] (principal); N18.6 End stage renal disease; I13.2 Hypertensive heart and chronic kidney disease with heart failure and with stage 5 chronic kidney disease, or end stage renal disease; E11.22 Type 2 diabetes mellitus with diabetic chronic kidney disease; E11.40 Type 2 diabetes mellitus with diabetic neuropathy, unspecified; E46 Unspecified protein-calorie malnutrition; I08.1 Rheumatic disorders of both mitral and tricuspid valves; I69.351 Hemiplegia and hemiparesis following cerebral infarction affecting right dominant side; I69.354 Hemiplegia and hemiparesis following cerebral infarction affecting left non-dominant side; I25.10 Atherosclerotic heart disease of native coronary artery without angina pectoris; I50.9 Heart failure, unspecified; E66.9 Obesity, unspecified; I25.2 Old myocardial infarction; Z79.899 Other long term (current) drug therapy; Z79.02 Long term (current) use of antithrombotics/antiplatelets; Z99.2 Dependence on renal dialysis; Z79.82 Long term (current) use of aspirin; Z79.4 Long term (current) use of insulin; Z88.0 Allergy status to penicillin; Z88.8 Allergy status to other drugs, medicaments and biological substances; Z98.61 Coronary angioplasty status; Z68.33 Body mass index [BMI] 33.0-33.9, adult
CPT/HCPCS: 36415; 71045; 80048; 80053; 80061; 82962; 83690; 83880; 84439; 84481; 84484; 85025; 85610; 85730; 93005; 96365; 96375; 99285; J1815; J2270; J2405; J7030

== ENCOUNTER 2017-09-18 08:23 | Emergency (ER) | payer MEDICARE, MEDICAID ==
[~2017-09-18] VITALS: Ht 162.6 cm; Wt 100.0 kg
[~2017-09-18 08:23] MED LIST changes: -ALPR-392 PO; -AM10 PO; -CLOP75TA15 PO; +DOCU-138 MT; +FERR325T6 PO; -FISH1CAP34 PO; -FOLI1TAB87 PO; -HYDR-523 PO; +IBUP-2030 PO; +LORA2TAB2 MT; -LOSA50TA20 PO; -METO-539 PO; +MULT1TAB63 MT; -PANT40TA4 PO; -TRAM50TA3 PO; -[UNRECOGNIZED DRUG - OTHER]
[2017-09-18 09:22] LABS: BASOPHILS % 0.8 % (0.0-2.0); HEMATOCRIT. 33.8 % (36.0-48.0); HEMOGLOBIN. 11.4 g/dL (12.0-16.0); LYMPHOCYTES % 34.3 % (20.0-50.0); MEAN CORPUSCULAR VOLUME 92.3 fL (81.0-99.0); MEAN PLATELET VOLUME 7.9 fl (7.4-10.4); MONOCYTES % 8.7 % (2.0-8.0); NEUTROPHILS % 53.2 % (40.0-76.0); PLATELET 152 x1000/uL (130-400); RED BLOOD CELL COUNT 3.66 mill/uL (4.2-5.4); RED CELL DISTRIBUTION WIDTH 19.5 % (11.6-14.6)
[2017-09-18 12:46] VITALS: BP 141/81
== END 2017-09-18 12:59 | disposition home or self-care (01) ==
LOC: ER 08:23
DX: R20.2 Paresthesia of skin (principal); I12.0 Hypertensive chronic kidney disease with stage 5 chronic kidney disease or end stage renal disease; N18.6 End stage renal disease; E87.6 Hypokalemia; D64.9 Anemia, unspecified; M79.602 Pain in left arm; E11.22 Type 2 diabetes mellitus with diabetic chronic kidney disease; I69.354 Hemiplegia and hemiparesis following cerebral infarction affecting left non-dominant side; Z99.2 Dependence on renal dialysis; I25.2 Old myocardial infarction; Z79.82 Long term (current) use of aspirin; Z79.4 Long term (current) use of insulin; Z88.0 Allergy status to penicillin; Z88.8 Allergy status to other drugs, medicaments and biological substances; Z79.899 Other long term (current) drug therapy
CPT/HCPCS: 36415; 70450; 71045; 80048; 85025; 93005; 93922; 99285

== ENCOUNTER 2018-02-12 06:08 | Inpatient (IN) | payer MEDICARE, MEDICAID ==
[~2018-02-12] VITALS: Ht 147.3 cm; Wt 69.2 kg
[~2018-02-12 06:08] MED LIST changes: +FERR210T MT; +SIMV40TA5 MT; +TRAM50TA MT
[2018-02-12] MEDS ORDERED: HYDRALAZINE 20MG/ML VIAL IV ONE (06:30)
[2018-02-12 07:25] LABS: BASOPHILS % 0.8 % (0.0-2.0); EOSINOPHILS % 3.2 % (0.0-5.0); HEMATOCRIT. 30.5 % (36.0-48.0); HEMOGLOBIN. 10.8 g/dL (12.0-16.0); LYMPHOCYTES % 28.5 % (20.0-50.0); MEAN CORPUSCULAR HEMOGLOBIN 33.4 pg (28.0-32.0); MEAN CORPUSCULAR VOLUME 94.6 fL (81.0-99.0); MEAN PLATELET VOLUME 7.6 fl (7.4-10.4); MONOCYTES % 6.4 % (2.0-8.0); NEUTROPHILS % 61.1 % (40.0-76.0); PLATELET 214 x1000/uL (130-400); RED BLOOD CELL COUNT 3.22 mill/uL (4.2-5.4); RED CELL DISTRIBUTION WIDTH 15.1 % (11.6-14.6)
[2018-02-12 07:38] LABS: CHLORIDE 105 mEq/L (98-107)
[2018-02-12] MEDS ORDERED: ACETAMINOPHEN 325MG TABLET PO ONE (08:30)
[2018-02-12] MEDS ORDERED: DIPHENHYDRAMINE 50MG/ML VIAL IV PRN ×2 (09:30→17:00)
[2018-02-12] MEDS ORDERED: CLONIDINE 0.1MG TABLET PO PRN (09:30)
[2018-02-12] MEDS ORDERED: DOCUSATE SODIUM 100MG CAPSULE PO PRN (09:30)
[2018-02-12] MEDS ORDERED: MORPHINE SULFATE 4 MG/ML CPJ (NOT FOR IM USE) IV PRN (09:30)
[2018-02-12] MEDS ORDERED: HYDROCODONE/APAP 7.5/325MG 1 TAB TABLET PO PRN ×2 (09:30→13:15)
[2018-02-12] MEDS ORDERED: HYDRALAZINE 20MG/ML VIAL IV PRN (09:30)
[2018-02-12] MEDS ORDERED: MAGNESIUM/ALUMINUM HYDROXIDE/SIMETHICONE 30ML UDC PO PRN (09:30)
[2018-02-12] MEDS ORDERED: GUAIFENESIN 200MG/10ML SUGAR FREE UDC PO PRN (09:30)
[2018-02-12] MEDS ORDERED: ACETAMINOPHEN 325MG TABLET PO PRN (09:30)
[2018-02-12 16:10] VITALS: BP 172/80
[2018-02-12 16:20] VITALS: BP 172/80
[2018-02-12] MEDS: ENOXAPARIN 30MG/0.3ML SYR SUBCUT SCH (16:55)
[2018-02-12] MEDS ORDERED: NON FORMULARY PATIENT HOME MED EA XX SCH (17:00)
[2018-02-12] MEDS ORDERED: TRAMADOL 50MG TABLET PO PRN (17:00)
[2018-02-12] MEDS ORDERED: CLONIDINE 0.2MG TABLET PO PRN (17:00)
[2018-02-12] MEDS ORDERED: LORAZEPAM 1MG TABLET PO PRN (17:00)
[2018-02-12] MEDS ORDERED: IBUPROFEN 800MG TABLET PO PRN (17:00)
[2018-02-12] MEDS ORDERED: DEXTROSE 50% WATER 50ML SYRINGE IV PRN ×2 (17:15)
[2018-02-12] MEDS: SEVELAMER CARBONATE 800 MG TABLET PO SCH (17:21)
[2018-02-12] MEDS: GABAPENTIN 300MG CAPSULE PO SCH (17:22)
[2018-02-12] MEDS: INSULIN LISPRO 100 UNITS/ML SUBCUT SCH ×2 (17:25→22:13)
[2018-02-12] MEDS: BLOOD SUGAR DIAGNOSTIC STRIP TEST SCH ×3 (17:25→22:13)
[2018-02-12 18:27] LABS: CREATINE KINASE 52 IU/L (26-192); CREATINE KINASE MB FRACTION < 1.0 ng/mL (0.5-3.6)
[2018-02-12 20:00] VITALS: BP 145/64
[2018-02-12] MEDS: AMLODIPINE 5MG TABLET PO SCH (21:54)
[2018-02-12] MEDS: ATORVASTATIN CALCIUM 20MG TABLET PO SCH (21:54)
[2018-02-12] MEDS: DOCUSATE SODIUM 250MG CAPSULE PO SCH (21:54)
[2018-02-12] MEDS: LORAZEPAM 2MG/ML CPJ IV PRN (21:56)
[2018-02-12] MEDS: INSULIN GLARGINE UD 100 UNITS/ML SYR SUBCUT SCH (22:12)
[2018-02-12] MEDS: SODIUM CHLORIDE 0.9% INJ 3ML FLUSH IVF SCH (22:14)
[2018-02-13] VITALS: BP 145/78
[2018-02-13 01:04] LABS: CREATINE KINASE 42 IU/L (26-192); CREATINE KINASE MB FRACTION < 1.0 ng/mL (0.5-3.6)
[2018-02-13 04:00] VITALS: BP 157/61
[2018-02-13] MEDS: SODIUM CHLORIDE 0.9% INJ 3ML FLUSH IVF SCH ×3 (06:27→23:06)
[2018-02-13] MEDS: INSULIN LISPRO 100 UNITS/ML SUBCUT SCH ×4 (07:50→22:51)
[2018-02-13] MEDS ORDERED: ASPIRIN 81MG TABLET PO SCH (09:00)
[2018-02-13] MEDS: AMLODIPINE 5MG TABLET PO SCH ×2 (09:01→22:48)
[2018-02-13] MEDS: ASPIRIN 81MG EC TABLET PO SCH (09:01)
[2018-02-13] MEDS: FERROUS SULFATE 325MG TABLET PO SCH (09:01)
[2018-02-13] MEDS: SEVELAMER CARBONATE 800 MG TABLET PO SCH ×3 (09:01→17:29)
[2018-02-13] MEDS: GABAPENTIN 300MG CAPSULE PO SCH ×2 (09:01→17:29)
[2018-02-13 10:21] LABS: BASOPHILS % 0.5 % (0.0-2.0); EOSINOPHILS % 2.9 % (0.0-5.0); HEMATOCRIT. 33.7 % (36.0-48.0); HEMOGLOBIN. 11.7 g/dL (12.0-16.0); LYMPHOCYTES % 25.5 % (20.0-50.0); MEAN CORPUSCULAR HEMOGLOBIN 33.4 pg (28.0-32.0); MEAN CORPUSCULAR VOLUME 96.4 fL (81.0-99.0); MEAN PLATELET VOLUME 7.7 fl (7.4-10.4); MONOCYTES % 5.7 % (2.0-8.0); NEUTROPHILS % 65.4 % (40.0-76.0); PLATELET 240 x1000/uL (130-400); RED CELL DISTRIBUTION WIDTH 15.1 % (11.6-14.6)
[2018-02-13] MEDS: INSULIN GLARGINE UD 100 UNITS/ML SYR SUBCUT SCH ×2 (10:25→22:52)
[2018-02-13 10:50] LABS: CHLORIDE 104 mEq/L (98-107)
[2018-02-13 11:07] LABS: HDL CHOLESTEROL 37 mg/dL (40-59); LDL CHOLESTEROL 133 mg/dL (5-100); T4 FREE 0.97 ng/dL (0.76-1.46)
[2018-02-13] MEDS: BLOOD SUGAR DIAGNOSTIC STRIP TEST SCH ×3 (12:20→21:00)
[2018-02-13 16:00] VITALS: BP 157/61
[2018-02-13 16:14] VITALS: BP 161/57
[2018-02-13] MEDS: ENOXAPARIN 30MG/0.3ML SYR SUBCUT SCH (17:29)
[2018-02-13 20:00] VITALS: BP 160/67
[2018-02-13] MEDS: DOCUSATE SODIUM 250MG CAPSULE PO SCH (22:48)
[2018-02-13] MEDS: ATORVASTATIN CALCIUM 20MG TABLET PO SCH (22:48)
[2018-02-13] MEDS: LORAZEPAM 2MG/ML CPJ IV PRN (23:05)
[2018-02-14] VITALS: BP 153/70
[2018-02-14 04:12] VITALS: BP 172/66
[2018-02-14] MEDS: SODIUM CHLORIDE 0.9% INJ 3ML FLUSH IVF SCH (06:00)
[2018-02-14] MEDS: BLOOD SUGAR DIAGNOSTIC STRIP TEST SCH ×2 (07:20→12:33)
[2018-02-14] MEDS: INSULIN LISPRO 100 UNITS/ML SUBCUT SCH ×2 (07:50→12:44)
[2018-02-14 08:00] VITALS: BP 161/60
[2018-02-14] MEDS: FERROUS SULFATE 325MG TABLET PO SCH (08:32)
[2018-02-14] MEDS: SEVELAMER CARBONATE 800 MG TABLET PO SCH ×2 (08:32→12:06)
[2018-02-14] MEDS: GABAPENTIN 300MG CAPSULE PO SCH (08:32)
[2018-02-14] MEDS: ASPIRIN 81MG EC TABLET PO SCH (08:33)
[2018-02-14] MEDS: AMLODIPINE 5MG TABLET PO SCH (08:33)
[2018-02-14 10:11] LABS: BASOPHILS % 0.5 % (0.0-2.0); EOSINOPHILS % 2.8 % (0.0-5.0); HEMATOCRIT. 33.1 % (36.0-48.0); HEMOGLOBIN. 11.5 g/dL (12.0-16.0); MEAN CORPUSCULAR HEMOGLOBIN 33.4 pg (28.0-32.0); MEAN CORPUSCULAR VOLUME 95.8 fL (81.0-99.0); MEAN PLATELET VOLUME 7.9 fl (7.4-10.4); MONOCYTES % 6.1 % (2.0-8.0); NEUTROPHILS % 63.6 % (40.0-76.0); PLATELET 215 x1000/uL (130-400); RED BLOOD CELL COUNT 3.45 mill/uL (4.2-5.4); RED CELL DISTRIBUTION WIDTH 15.3 % (11.6-14.6)
[2018-02-14] MEDS: INSULIN GLARGINE UD 100 UNITS/ML SYR SUBCUT SCH (11:22)
[2018-02-14 12:00] VITALS: BP 171/84
[2018-02-14 13:29] VITALS: BP 136/62
== END 2018-02-14 15:47 | disposition home or self-care (01) | DRG 304 ==
LOC: ER 06:08 → 6WST 08:43 → ENRESERV 13:55
PROVIDERS: ADMIT Internal Medicine; ATTEND Internal Medicine
PROC: 4A00X4Z Measurement of Central Nervous Electrical Activity, External Approach (ICD-10-PCS; principal; 2018-02-13)
DX: I16.0 Hypertensive urgency (principal); N18.6 End stage renal disease; E11.22 Type 2 diabetes mellitus with diabetic chronic kidney disease; I25.10 Atherosclerotic heart disease of native coronary artery without angina pectoris; E87.6 Hypokalemia; J44.9 Chronic obstructive pulmonary disease, unspecified; D72.829 Elevated white blood cell count, unspecified; I13.2 Hypertensive heart and chronic kidney disease with heart failure and with stage 5 chronic kidney disease, or end stage renal disease; I50.9 Heart failure, unspecified; I69.30 Unspecified sequelae of cerebral infarction; Z95.1 Presence of aortocoronary bypass graft; Z95.5 Presence of coronary angioplasty implant and graft; I25.2 Old myocardial infarction; Z99.2 Dependence on renal dialysis; Z88.8 Allergy status to other drugs, medicaments and biological substances; Z79.82 Long term (current) use of aspirin; Z79.4 Long term (current) use of insulin; Z79.899 Other long term (current) drug therapy
CPT/HCPCS: 36415; 70551; 71045; 80048; 80061; 82550; 82553; 82962; 84439; 84443; 84484; 93005; 96374; 99291; J0360; J1650; J1815; J2060

== ENCOUNTER 2018-03-24 19:39 | Emergency (ER) | payer MEDICARE, MEDICAID ==
[~2018-03-24] VITALS: Ht 157.5 cm; Wt 75.3 kg
[2018-03-24 19:46] VITALS: BP 150/53
== END 2018-03-24 23:00 | disposition left against medical advice (07) ==
LOC: ER 20:03
DX: Z53.21 Procedure and treatment not carried out due to patient leaving prior to being seen by health care provider (principal); E11.9 Type 2 diabetes mellitus without complications; I12.9 Hypertensive chronic kidney disease with stage 1 through stage 4 chronic kidney disease, or unspecified chronic kidney disease; E11.22 Type 2 diabetes mellitus with diabetic chronic kidney disease; N18.9 Chronic kidney disease, unspecified; I69.354 Hemiplegia and hemiparesis following cerebral infarction affecting left non-dominant side

== ENCOUNTER 2018-04-25 14:58 | Inpatient (IN) | payer MEDICARE, MEDICAID ==
[~2018-04-25] VITALS: Ht 165.1 cm; Wt 77.6 kg
[2018-04-25] MEDS ORDERED: VANCOMYCIN 1 G PREMIX 200 ML IV ONE (19:00)
[2018-04-25 19:50] LABS: BASOPHILS % 0.6 % (0.0-2.0); EOSINOPHILS % 2.4 % (0.0-5.0); HEMATOCRIT. 34.6 % (36.0-48.0); HEMOGLOBIN. 11.3 g/dL (12.0-16.0); LYMPHOCYTES % 28.3 % (20.0-50.0); MEAN CORPUSCULAR HEMOGLOBIN 31.8 pg (28.0-32.0); MEAN CORPUSCULAR VOLUME 97.7 fL (81.0-99.0); MEAN PLATELET VOLUME 7.7 fl (7.4-10.4); MONOCYTES % 6.8 % (2.0-8.0); NEUTROPHILS % 61.9 % (40.0-76.0); PLATELET 217 x1000/uL (130-400); RED BLOOD CELL COUNT 3.55 mill/uL (4.2-5.4)
[2018-04-25 19:57] LABS: INR 0.9; PARTIAL THROMBOPLASTIN TIME 21.3 sec (23.4-31.0); PROTHROMBIN TIME 9.4 sec (9.1-11.1)
[2018-04-25 19:59] LABS: HCG SCREEN NEGATIVE
[2018-04-25] MEDS ORDERED: LEVOFLOXACIN 500MG PREMIX 100 ML IV ONE (20:00)
[2018-04-25] MEDS ORDERED: HYDROCODONE/ACETAMINOPHEN 5/325MG TABLET PO ONE (20:30)
[2018-04-25] MEDS ORDERED: MAGNESIUM/ALUMINUM HYDROXIDE/SIMETHICONE 30ML UDC PO PRN (20:45)
[2018-04-25] MEDS ORDERED: ONDANSETRON HCL 4MG/2ML INJ IV PRN (20:45)
[2018-04-25] MEDS ORDERED: GUAIFENESIN 200MG/10ML SUGAR FREE UDC PO PRN (20:45)
[2018-04-25] MEDS ORDERED: IPRATROPIUM/ALBUTEROL 0.5-3(2.5)MG/3ML NEB INH PRN (20:45)
[2018-04-25] MEDS ORDERED: LORAZEPAM 2MG/ML CPJ IV PRN (20:45)
[2018-04-25] MEDS ORDERED: DOCUSATE SODIUM 100MG CAPSULE PO PRN (20:45)
[2018-04-25] MEDS ORDERED: CLONIDINE 0.1MG TABLET PO PRN (20:45)
[2018-04-25] MEDS ORDERED: LEVOFLOXACIN 500MG PREMIX 100 ML IV SCH (20:45)
[2018-04-25] MEDS ORDERED: NA PHOS,M-B/NA PHOS,DI-BA ENEMA 118ML PR PRN (20:45)
[2018-04-25] MEDS ORDERED: ACETAMINOPHEN 325MG TABLET PO PRN (20:45)
[2018-04-26] MEDS: HYDROCODONE/ACETAMINOPHEN 5/325MG TABLET PO PRN ×2 (00:45→21:16)
[2018-04-26] MEDS ORDERED: DEXTROSE 50% WATER 50ML SYRINGE IV PRN (04:45)
[2018-04-26 05:15] VITALS: BP 148/62
[2018-04-26 05:30] VITALS: BP 142/62
[2018-04-26] MEDS: MORPHINE SULFATE 4 MG/ML CPJ (NOT FOR IM USE) IV PRN ×2 (05:49→12:19)
[2018-04-26] MEDS: BLOOD SUGAR DIAGNOSTIC STRIP TEST SCH ×4 (06:39→20:07)
[2018-04-26] MEDS: INSULIN LISPRO 100 UNITS/ML SUBCUT SCH ×4 (06:49→20:23)
[2018-04-26 08:00] VITALS: BP 142/67
[2018-04-26] MEDS: ASPIRIN 81MG EC TABLET PO SCH (08:56)
[2018-04-26] MEDS: GENTAMICIN 0.3% OPHTH DROPS 5ML LEFTEYE SCH ×5 (08:56→23:23)
[2018-04-26] MEDS: ENOXAPARIN 30MG/0.3ML SYR SUBCUT SCH (08:56)
[2018-04-26] MEDS ORDERED: VANCOMYCIN 500 MG PREMIX 100 ML IV SCH (11:00)
[2018-04-26 11:43] LABS: CHLORIDE 105 mEq/L (98-107)
[2018-04-26 11:45] LABS: BASOPHILS % 0.5 % (0.0-2.0); EOSINOPHILS % 2.8 % (0.0-5.0); HEMATOCRIT. 30.2 % (36.0-48.0); HEMOGLOBIN. 10.2 g/dL (12.0-16.0); LYMPHOCYTES % 30.6 % (20.0-50.0); MEAN CORPUSCULAR HEMOGLOBIN 32.6 pg (28.0-32.0); MEAN PLATELET VOLUME 7.8 fl (7.4-10.4); MONOCYTES % 8.6 % (2.0-8.0); NEUTROPHILS % 57.5 % (40.0-76.0); PLATELET 197 x1000/uL (130-400); RED BLOOD CELL COUNT 3.12 mill/uL (4.2-5.4); RED CELL DISTRIBUTION WIDTH 17.8 % (11.6-14.6)
[2018-04-26 11:51] LABS: LDL CHOLESTEROL 85 mg/dL (5-100)
[2018-04-26 11:55] LABS: HDL CHOLESTEROL 33 mg/dL (40-59)
[2018-04-26 12:00] VITALS: BP_SYST 144; BP_SYST 170; BP_DIAS 83; BP_DIAS 92
[2018-04-26] MEDS: SEVELAMER CARBONATE 800 MG TABLET PO SCH ×2 (12:19→17:29)
[2018-04-26 16:00] VITALS: BP 126/75
[2018-04-26 20:00] VITALS: BP 137/52
[2018-04-26] MEDS ORDERED: EPOETIN ALFA 4000UNITS/ML VIAL SUBCUT SCH (21:00)
[2018-04-27] VITALS: BP 148/62
[2018-04-27] MEDS: GENTAMICIN 0.3% OPHTH DROPS 5ML LEFTEYE SCH ×6 (03:53→23:50)
[2018-04-27 04:00] VITALS: BP 150/62
[2018-04-27] MEDS: BLOOD SUGAR DIAGNOSTIC STRIP TEST SCH ×4 (05:49→20:25)
[2018-04-27] MEDS: INSULIN LISPRO 100 UNITS/ML SUBCUT SCH ×4 (06:03→20:59)
[2018-04-27 08:30] VITALS: BP 165/75
[2018-04-27] MEDS: ASPIRIN 81MG EC TABLET PO SCH (08:51)
[2018-04-27] MEDS: ENOXAPARIN 30MG/0.3ML SYR SUBCUT SCH (08:52)
[2018-04-27] MEDS: SEVELAMER CARBONATE 800 MG TABLET PO SCH ×3 (08:52→17:35)
[2018-04-27] MEDS: HYDROCODONE/ACETAMINOPHEN 5/325MG TABLET PO PRN ×2 (10:37→20:56)
[2018-04-27 12:00] VITALS: BP 130/66
[2018-04-27 16:00] VITALS: BP 135/52
[2018-04-27 20:00] VITALS: BP 145/65
[2018-04-27] MEDS ORDERED: LEVOFLOXACIN 250MG PREMIX 50 ML IV SCH (21:00)
[2018-04-27] MEDS ORDERED: ATORVASTATIN CALCIUM 20MG TABLET PO SCH (21:00)
[2018-04-28] VITALS: BP 105/66
[2018-04-28] MEDS: DIPHENHYDRAMINE 50MG/ML VIAL IV PRN ×2 (02:13→14:45)
[2018-04-28] MEDS: LORAZEPAM 2MG/ML CPJ IV PRN ×2 (02:52→10:02)
[2018-04-28 04:00] VITALS: BP 157/75
[2018-04-28] MEDS: GENTAMICIN 0.3% OPHTH DROPS 5ML LEFTEYE SCH ×4 (04:54→17:18)
[2018-04-28] MEDS: BLOOD SUGAR DIAGNOSTIC STRIP TEST SCH ×3 (05:35→17:18)
[2018-04-28] MEDS: INSULIN LISPRO 100 UNITS/ML SUBCUT SCH ×3 (05:45→17:18)
[2018-04-28 08:27] VITALS: BP 157/59
[2018-04-28] MEDS: ASPIRIN 81MG EC TABLET PO SCH (09:41)
[2018-04-28] MEDS: SEVELAMER CARBONATE 800 MG TABLET PO SCH ×2 (09:41→12:20)
[2018-04-28] MEDS: ENOXAPARIN 30MG/0.3ML SYR SUBCUT SCH (09:41)
[2018-04-28 11:38] VITALS: BP 143/51
[2018-04-28] MEDS: MORPHINE SULFATE 4 MG/ML CPJ (NOT FOR IM USE) IV PRN (14:46)
[2018-04-28 18:07] VITALS: BP 152/78
[2018-04-28] MEDS ORDERED: VANCOMYCIN 1 G PREMIX 200 ML IV NR (21:00)
== END 2018-04-28 20:10 | disposition home or self-care (01) | DRG 602 ==
LOC: ER 14:58 → 8WST 20:38 → EDBEDREQTM 20:46 → EDBEDREQ 20:46 → EDBEDREQSVC 20:46 → ENRESERV 04-26 04:41
PROVIDERS: ADMIT Internal Medicine; ATTEND Internal Medicine
PROC: 5A1D70Z Performance of Urinary Filtration, Intermittent, Less than 6 Hours Per Day (ICD-10-PCS; principal; 2018-04-26)
PROC: 5A1D70Z Performance of Urinary Filtration, Intermittent, Less than 6 Hours Per Day (ICD-10-PCS; 2018-04-28)
DX: L03.211 Cellulitis of face (principal); N18.6 End stage renal disease; E46 Unspecified protein-calorie malnutrition; R65.10 Systemic inflammatory response syndrome (SIRS) of non-infectious origin without acute organ dysfunction; I13.2 Hypertensive heart and chronic kidney disease with heart failure and with stage 5 chronic kidney disease, or end stage renal disease; N17.9 Acute kidney failure, unspecified; H00.036 Abscess of eyelid left eye, unspecified eyelid; E11.22 Type 2 diabetes mellitus with diabetic chronic kidney disease; E11.65 Type 2 diabetes mellitus with hyperglycemia; I25.10 Atherosclerotic heart disease of native coronary artery without angina pectoris; E11.21 Type 2 diabetes mellitus with diabetic nephropathy; I50.9 Heart failure, unspecified; Z79.4 Long term (current) use of insulin; Z79.82 Long term (current) use of aspirin; Z86.73 Personal history of transient ischemic attack (TIA), and cerebral infarction without residual deficits; Z99.2 Dependence on renal dialysis; Z95.5 Presence of coronary angioplasty implant and graft; Z79.899 Other long term (current) drug therapy; Z68.28 Body mass index [BMI] 28.0-28.9, adult; Z88.0 Allergy status to penicillin; Z88.1 Allergy status to other antibiotic agents; I25.2 Old myocardial infarction
CPT/HCPCS: 36415; 70486; 80048; 80061; 80202; 82962; 83036; 83605; 84145; 84484; 84703; 87070; 87077; 93005; 96374; 96375; 99285; J0885; J1200; J1650; J1815; J1956; J2060; J2270; J3370; J7040

== ENCOUNTER 2018-06-23 19:26 | Inpatient (IN) | payer MEDICARE, MEDICAID ==
[~2018-06-23] VITALS: Ht 157.5 cm; Wt 75.3 kg
[~2018-06-23 19:26] MED LIST changes: -LORA2TAB2 MT; -SIMV40TA5 MT; -TRAM50TA MT
[2018-06-23] MEDS ORDERED: ONDANSETRON HCL 4MG/2ML INJ IV STA (22:22)
[2018-06-23] MEDS ORDERED: ACETAMINOPHEN 325MG TABLET PO ONE (22:30)
[2018-06-23] MEDS ORDERED: FAMOTIDINE 20MG/2ML VIAL IV ONE (22:30)
[2018-06-23 22:54] LABS: EOSINOPHILS % 3.1 % (0.0-5.0); HEMATOCRIT. 41.6 % (36.0-48.0); HEMOGLOBIN. 13.7 g/dL (12.0-16.0); LYMPHOCYTES % 28.5 % (20.0-50.0); MEAN CORPUSCULAR HEMOGLOBIN 31.5 pg (28.0-32.0); MEAN CORPUSCULAR VOLUME 95.4 fL (81.0-99.0); MEAN PLATELET VOLUME 8.1 fl (7.4-10.4); MONOCYTES % 8.8 % (2.0-8.0); NEUTROPHILS % 58.6 % (40.0-76.0); PLATELET 213 x1000/uL (130-400); RED BLOOD CELL COUNT 4.36 mill/uL (4.2-5.4)
[2018-06-23 22:59] LABS: CHLORIDE 98 mEq/L (98-107)
[2018-06-23 23:03] LABS: PARTIAL THROMBOPLASTIN TIME 24.7 sec (23.4-31.0)
[2018-06-23 23:11] LABS: HCG SCREEN NEGATIVE
[2018-06-24] MEDS ORDERED: SODIUM POLYSTYRENE SULFONATE 15 G/60 ML BOT PO ONE (00:30)
[2018-06-24] MEDS ORDERED: SODIUM BICARBONATE 8.4% 1 MEQ/ML 50ML SYR IV ONE (00:30)
[2018-06-24] MEDS ORDERED: SODIUM CHLORIDE 0.9% 1,000 ML IV ONE (00:39)
[2018-06-24] MEDS ORDERED: MORPHINE SULFATE 4 MG/ML CPJ (NOT FOR IM USE) IV STA (00:39)
[2018-06-24] MEDS ORDERED: ONDANSETRON HCL 4MG/2ML INJ IV STA (00:39)
[2018-06-24] MEDS ORDERED: ONDANSETRON HCL 4MG/2ML INJ IV PRN (05:45)
[2018-06-24] MEDS ORDERED: NA PHOS,M-B/NA PHOS,DI-BA ENEMA 118ML PR PRN (05:45)
[2018-06-24] MEDS ORDERED: CLONIDINE 0.1MG TABLET PO PRN (05:45)
[2018-06-24] MEDS ORDERED: GUAIFENESIN 200MG/10ML SUGAR FREE UDC PO PRN (05:45)
[2018-06-24] MEDS ORDERED: IPRATROPIUM/ALBUTEROL 0.5-3(2.5)MG/3ML NEB INH PRN (05:45)
[2018-06-24] MEDS ORDERED: ENOXAPARIN 40MG/0.4ML SYR SUBCUT SCH (05:45)
[2018-06-24] MEDS ORDERED: ACETAMINOPHEN 325MG TABLET PO PRN (05:45)
[2018-06-24] MEDS ORDERED: MAGNESIUM/ALUMINUM HYDROXIDE/SIMETHICONE 30ML UDC PO PRN (05:45)
[2018-06-24] MEDS ORDERED: DIPHENHYDRAMINE 50MG/ML VIAL IV PRN (05:45)
[2018-06-24] MEDS: ENOXAPARIN 30MG/0.3ML SYR SUBCUT SCH (08:36)
[2018-06-24] MEDS: HYDROCODONE/ACETAMINOPHEN 5/325MG TABLET PO PRN (08:39)
[2018-06-24 08:57] LABS: CLARITY URINE TURBID (CLEAR); COLOR URINE YELLOW (YELLOW); KETONES URINE TRACE (NEGATIVE); LEUKOCYTE ESTERASE URINE 2+ (NEGATIVE); NITRITE URINE NEGATIVE (NEGATIVE); OCCULT BLOOD URINE 1+ (NEGATIVE); PH URINE 5.5 (4.5-8.0); PROTEIN URINE 3+ (NEGATIVE); SPECIFIC GRAVITY URINE 1.024 (1.005-1.030); UROBILINOGEN URINE 0.2 E.U./dL (0.2-1.0)
[2018-06-24] MEDS: ASPIRIN 81MG EC TABLET PO SCH (12:48)
[2018-06-24] MEDS: FAMOTIDINE 20MG/2ML VIAL IV SCH (16:30)
[2018-06-24 17:00] LABS: CREATINE KINASE 76 IU/L (26-192)
[2018-06-24 21:00] VITALS: BP 140/67
[2018-06-24] MEDS ORDERED: HYDROMORPHONE HCL/PF 2MG/ML CPJ IV PRN (21:08)
[2018-06-24] MEDS ORDERED: DEXTROSE 50% WATER 50ML SYRINGE IV PRN (21:30)
[2018-06-24] MEDS: LORAZEPAM 2MG/ML CPJ IV PRN (21:47)
[2018-06-24 22:00] VITALS: BP 140/67
[2018-06-24 23:43] VITALS: BP 124/47
[2018-06-25 04:00] VITALS: BP 153/68
[2018-06-25] MEDS: HYDROCODONE/ACETAMINOPHEN 5/325MG TABLET PO PRN (04:48)
[2018-06-25] MEDS: BLOOD SUGAR DIAGNOSTIC STRIP TEST SCH ×4 (07:29→20:46)
[2018-06-25] MEDS: INSULIN LISPRO 100 UNITS/ML SUBCUT SCH ×4 (07:50→21:23)
[2018-06-25 08:00] VITALS: BP 109/61
[2018-06-25 08:42] LABS: BASOPHILS % 0.9 % (0.0-2.0); EOSINOPHILS % 5.6 % (0.0-5.0); HEMATOCRIT. 35.5 % (36.0-48.0); MEAN CORPUSCULAR VOLUME 94.7 fL (81.0-99.0); MEAN PLATELET VOLUME 8.2 fl (7.4-10.4); MONOCYTES % 6.6 % (2.0-8.0); NEUTROPHILS % 44.9 % (40.0-76.0); PLATELET 204 x1000/uL (130-400); RED BLOOD CELL COUNT 3.75 mill/uL (4.2-5.4); RED CELL DISTRIBUTION WIDTH 20.5 % (11.6-14.6)
[2018-06-25 08:55] LABS: CHLORIDE 100 mEq/L (98-107)
[2018-06-25] MEDS: ASPIRIN 81MG EC TABLET PO SCH (08:59)
[2018-06-25] MEDS: FAMOTIDINE 20MG/2ML VIAL IV SCH (08:59)
[2018-06-25] MEDS: ENOXAPARIN 30MG/0.3ML SYR SUBCUT SCH (08:59)
[2018-06-25 09:03] LABS: LDL CHOLESTEROL 143 mg/dL (5-100)
[2018-06-25 09:04] LABS: HDL CHOLESTEROL 39 mg/dL (40-59)
[2018-06-25] MEDS: LORAZEPAM 2MG/ML CPJ IV PRN ×2 (09:38→20:10)
[2018-06-25 12:00] VITALS: BP 145/63
[2018-06-25 16:00] VITALS: BP 119/62
[2018-06-25 20:00] VITALS: BP 139/63
[2018-06-26] VITALS: BP 127/66
[2018-06-26] MEDS: HYDROCODONE/ACETAMINOPHEN 5/325MG TABLET PO PRN ×2 (01:57→09:08)
[2018-06-26 04:00] VITALS: BP 143/47
[2018-06-26] MEDS: BLOOD SUGAR DIAGNOSTIC STRIP TEST SCH (05:46)
[2018-06-26] MEDS: INSULIN LISPRO 100 UNITS/ML SUBCUT SCH (05:46)
[2018-06-26 08:00] VITALS: BP 135/56
[2018-06-26] MEDS: ASPIRIN 81MG EC TABLET PO SCH (09:06)
[2018-06-26] MEDS: ENOXAPARIN 30MG/0.3ML SYR SUBCUT SCH (09:06)
[2018-06-26] MEDS: FAMOTIDINE 20MG/2ML VIAL IV SCH (09:20)
[2018-06-26 10:11] VITALS: BP 135/56
== END 2018-06-26 11:06 | disposition home or self-care (01) | DRG 391 ==
LOC: ER 19:26 → 7WST 06-24 00:56 → EDBEDREQ 06-24 02:02 → ENRESERV 06-24 20:14
PROVIDERS: ADMIT Internal Medicine; ATTEND Internal Medicine
DX: K29.70 Gastritis, unspecified, without bleeding (principal); N18.6 End stage renal disease; E46 Unspecified protein-calorie malnutrition; I12.0 Hypertensive chronic kidney disease with stage 5 chronic kidney disease or end stage renal disease; E87.5 Hyperkalemia; E11.22 Type 2 diabetes mellitus with diabetic chronic kidney disease; K21.9 Gastro-esophageal reflux disease without esophagitis; K76.0 Fatty (change of) liver, not elsewhere classified; K86.89 Other specified diseases of pancreas; E11.42 Type 2 diabetes mellitus with diabetic polyneuropathy; E78.00 Pure hypercholesterolemia, unspecified; I25.10 Atherosclerotic heart disease of native coronary artery without angina pectoris; Z79.4 Long term (current) use of insulin; Z99.2 Dependence on renal dialysis; Z79.82 Long term (current) use of aspirin; Z79.899 Other long term (current) drug therapy; Z86.73 Personal history of transient ischemic attack (TIA), and cerebral infarction without residual deficits; Z95.5 Presence of coronary angioplasty implant and graft; Z88.0 Allergy status to penicillin; Z88.8 Allergy status to other drugs, medicaments and biological substances; Z68.30 Body mass index [BMI] 30.0-30.9, adult
CPT/HCPCS: 36415; 71045; 74176; 76705; 80048; 80061; 82550; 82962; 83880; 84484; 84703; 93005; 96374; 96375; 99285; C1893; J1200; J1650; J1815; J2060; J2270; J2405; J3490; J7030

== ENCOUNTER 2018-08-23 20:34 | Emergency (ER) | payer MEDICARE, MEDICAID ==
[~2018-08-23] VITALS: Ht 147.3 cm; Wt 78.3 kg
[2018-08-23] MEDS ORDERED: HYDROCODONE/ACETAMINOPHEN 5/325MG TABLET PO STA (22:28)
[2018-08-23 23:03] LABS: BASOPHILS % 0.6 % (0.0-2.0); EOSINOPHILS % 3.4 % (0.0-5.0); HEMATOCRIT. 31.1 % (36.0-48.0); HEMOGLOBIN. 10.9 g/dL (12.0-16.0); LYMPHOCYTES % 26.2 % (20.0-50.0); MEAN CORPUSCULAR HEMOGLOBIN 32.3 pg (28.0-32.0); MEAN CORPUSCULAR VOLUME 91.9 fL (81.0-99.0); MEAN PLATELET VOLUME 8.1 fl (7.4-10.4); MONOCYTES % 7.5 % (2.0-8.0); NEUTROPHILS % 62.3 % (40.0-76.0); PLATELET 174 x1000/uL (130-400); RED BLOOD CELL COUNT 3.38 mill/uL (4.2-5.4); RED CELL DISTRIBUTION WIDTH 17.6 % (11.6-14.6)
[2018-08-23 23:04] LABS: CHLORIDE 98 mEq/L (98-107)
[2018-08-23] MEDS ORDERED: HYDROCODONE/ACETAMINOPHEN 5/325MG TABLET PO NR (23:15)
[2018-08-24 00:26] VITALS: BP 133/52
== END 2018-08-24 00:29 | disposition home or self-care (01) ==
LOC: ER 20:34
DX: M79.10 Myalgia, unspecified site (principal); I12.9 Hypertensive chronic kidney disease with stage 1 through stage 4 chronic kidney disease, or unspecified chronic kidney disease; E11.22 Type 2 diabetes mellitus with diabetic chronic kidney disease; N18.9 Chronic kidney disease, unspecified; D64.9 Anemia, unspecified; I25.2 Old myocardial infarction; Z79.4 Long term (current) use of insulin; Z86.73 Personal history of transient ischemic attack (TIA), and cerebral infarction without residual deficits; Z79.899 Other long term (current) drug therapy; Z88.0 Allergy status to penicillin; Z88.6 Allergy status to analgesic agent; Z95.1 Presence of aortocoronary bypass graft
CPT/HCPCS: 36415; 99283

== ENCOUNTER 2018-08-26 21:41 | Emergency (ER) | payer MEDICARE, MEDICAID ==
[~2018-08-26] VITALS: Ht 149.9 cm; Wt 77.4 kg
[2018-08-26 23:24] LABS: CHLORIDE 99 mEq/L (98-107)
[2018-08-26] MEDS ORDERED: HYDROCODONE/ACETAMINOPHEN 5/325MG TABLET PO ONE (23:30)
[2018-08-26 23:33] LABS: BASOPHILS % 0.4 % (0.0-2.0); EOSINOPHILS % 2.9 % (0.0-5.0); HEMATOCRIT. 32.8 % (36.0-48.0); HEMOGLOBIN. 11.1 g/dL (12.0-16.0); LYMPHOCYTES % 29.9 % (20.0-50.0); MEAN CORPUSCULAR HEMOGLOBIN 32.1 pg (28.0-32.0); MEAN CORPUSCULAR VOLUME 94.5 fL (81.0-99.0); MEAN PLATELET VOLUME 8.6 fl (7.4-10.4); MONOCYTES % 6.7 % (2.0-8.0); NEUTROPHILS % 60.1 % (40.0-76.0); PLATELET 187 x1000/uL (130-400); RED BLOOD CELL COUNT 3.47 mill/uL (4.2-5.4); RED CELL DISTRIBUTION WIDTH 18.2 % (11.6-14.6)
[2018-08-26] MEDS ORDERED: OXYCODONE HCL/ACETAMINOPHEN 5/325MG TABLET PO ONE (23:45)
[2018-08-27 06:45] VITALS: BP 139/73
== END 2018-08-27 06:54 | disposition home or self-care (01) ==
LOC: ER 21:41
DX: G89.29 Other chronic pain (principal); R53.1 Weakness; I25.2 Old myocardial infarction; E11.22 Type 2 diabetes mellitus with diabetic chronic kidney disease; E11.65 Type 2 diabetes mellitus with hyperglycemia; I12.0 Hypertensive chronic kidney disease with stage 5 chronic kidney disease or end stage renal disease; N18.6 End stage renal disease; Z86.73 Personal history of transient ischemic attack (TIA), and cerebral infarction without residual deficits; Z99.2 Dependence on renal dialysis; Z79.4 Long term (current) use of insulin; Z98.61 Coronary angioplasty status; Z88.0 Allergy status to penicillin; Z88.8 Allergy status to other drugs, medicaments and biological substances
CPT/HCPCS: 36415; 82962; 93005; 99284

== ENCOUNTER 2018-08-31 09:04 | Emergency (ER) | payer MEDICARE, MEDICAID ==
[~2018-08-31] VITALS: Ht 167.6 cm; Wt 90.0 kg
[2018-08-31] MEDS ORDERED: ACETAMINOPHEN 325MG TABLET PO ONE (10:30)
[2018-08-31 11:34] VITALS: BP 154/79
== END 2018-08-31 11:43 | disposition home or self-care (01) ==
LOC: ER 09:04
DX: S46.912A Strain of unspecified muscle, fascia and tendon at shoulder and upper arm level, left arm, initial encounter (principal); M54.5 Low back pain; E11.9 Type 2 diabetes mellitus without complications; I10 Essential (primary) hypertension; Z79.82 Long term (current) use of aspirin; Z79.899 Other long term (current) drug therapy; Z88.0 Allergy status to penicillin; Z88.6 Allergy status to analgesic agent; Z79.4 Long term (current) use of insulin; Z98.62 Peripheral vascular angioplasty status; W18.39XA Other fall on same level, initial encounter; Y93.89 Activity, other specified; Y92.89 Other specified places as the place of occurrence of the external cause; Y99.8 Other external cause status
CPT/HCPCS: 73030; 99283

== ENCOUNTER 2018-09-10 20:06 | Emergency (ER) | payer MEDICARE, MEDICAID ==
[~2018-09-10] VITALS: Ht 154.9 cm; Wt 80.0 kg
[2018-09-10] MEDS ORDERED: CLONIDINE 0.2MG TABLET PO ONE (21:30)
[2018-09-10] MEDS ORDERED: ASPIRIN 81MG TABLET PO ONE (21:30)
[2018-09-10] MEDS ORDERED: VISCOUS LIDOCAINE 2% 15 ML UDC PO ONE (21:45)
[2018-09-10] MEDS ORDERED: MAGNESIUM/ALUMINUM HYDROXIDE/SIMETHICONE 30ML UDC PO ONE (21:45)
[2018-09-10 21:47] LABS: BASOPHILS % 1.4 % (0.0-2.0); EOSINOPHILS % 2.7 % (0.0-5.0); HEMATOCRIT. 33.1 % (36.0-48.0); HEMOGLOBIN. 11.5 g/dL (12.0-16.0); LYMPHOCYTES % 28.1 % (20.0-50.0); MEAN CORPUSCULAR HEMOGLOBIN 31.9 pg (28.0-32.0); MEAN CORPUSCULAR VOLUME 92.2 fL (81.0-99.0); MEAN PLATELET VOLUME 7.9 fl (7.4-10.4); MONOCYTES % 5.6 % (2.0-8.0); NEUTROPHILS % 62.2 % (40.0-76.0); PLATELET 370 x1000/uL (130-400); RED BLOOD CELL COUNT 3.59 mill/uL (4.2-5.4); RED CELL DISTRIBUTION WIDTH 17.2 % (11.6-14.6)
[2018-09-10 21:52] LABS: CHLORIDE 98 mEq/L (98-107)
[2018-09-10] MEDS ORDERED: HYDROCODONE/ACETAMINOPHEN 5/325MG TABLET PO ONE (23:30)
[2018-09-11 00:49] VITALS: BP 134/78
== END 2018-09-11 00:55 | disposition home or self-care (01) ==
LOC: ER 20:06
DX: E11.22 Type 2 diabetes mellitus with diabetic chronic kidney disease (principal); I12.0 Hypertensive chronic kidney disease with stage 5 chronic kidney disease or end stage renal disease; N18.6 End stage renal disease; R06.02 Shortness of breath; R07.9 Chest pain, unspecified; R25.2 Cramp and spasm; Z99.2 Dependence on renal dialysis; Z86.73 Personal history of transient ischemic attack (TIA), and cerebral infarction without residual deficits; Z79.4 Long term (current) use of insulin; Z79.899 Other long term (current) drug therapy; Z88.0 Allergy status to penicillin; Z88.6 Allergy status to analgesic agent
CPT/HCPCS: 36415; 71045; 83880; 84484; 93005; 99284

== ENCOUNTER 2018-09-12 08:24 | Emergency (ER) | payer MEDICARE, MEDICAID ==
[~2018-09-12] VITALS: Ht 149.9 cm; Wt 82.0 kg
[2018-09-12] MEDS ORDERED: ONDANSETRON HCL 4MG/2ML INJ IV STA (08:44)
[2018-09-12 08:57] LABS: BASOPHILS % 1.2 % (0.0-2.0); EOSINOPHILS % 2.2 % (0.0-5.0); HEMATOCRIT. 31.6 % (36.0-48.0); HEMOGLOBIN. 11.1 g/dL (12.0-16.0); LYMPHOCYTES % 30.9 % (20.0-50.0); MEAN CORPUSCULAR HEMOGLOBIN 32.2 pg (28.0-32.0); MEAN CORPUSCULAR VOLUME 92.1 fL (81.0-99.0); MEAN PLATELET VOLUME 7.6 fl (7.4-10.4); MONOCYTES % 6.1 % (2.0-8.0); NEUTROPHILS % 59.6 % (40.0-76.0); PLATELET 347 x1000/uL (130-400); RED BLOOD CELL COUNT 3.43 mill/uL (4.2-5.4)
[2018-09-12 09:02] LABS: CHLORIDE 97 mEq/L (98-107)
[2018-09-12] MEDS ORDERED: ACETAMINOPHEN 325MG TABLET PO ONE (10:15)
[2018-09-12 10:34] VITALS: BP 163/71
[2018-09-12] MEDS ORDERED: OXYCODONE HCL/ACETAMINOPHEN 5/325MG TABLET PO ONE (10:45)
== END 2018-09-12 11:00 | disposition home or self-care (01) ==
LOC: ER 08:24
DX: R11.2 Nausea with vomiting, unspecified (principal); M79.18 Myalgia, other site; I10 Essential (primary) hypertension; E11.9 Type 2 diabetes mellitus without complications; Z99.2 Dependence on renal dialysis; Z88.0 Allergy status to penicillin; Z88.8 Allergy status to other drugs, medicaments and biological substances; Z79.899 Other long term (current) drug therapy; Z79.82 Long term (current) use of aspirin
CPT/HCPCS: 36415; 71045; 80053; 85025; 93005; 96374; 99284; J2405

== ENCOUNTER 2018-10-04 17:00 | Emergency (ER) | payer MEDICARE, MEDICAID ==
[~2018-10-04] VITALS: Ht 165.1 cm; Wt 79.0 kg
[2018-10-04] MEDS: ACETAMINOPHEN 650MG/20.3ML UDC PO ONE (22:11)
[2018-10-04] MEDS: TRAMADOL 50MG TABLET PO PRN (22:11)
[2018-10-04] MEDS ORDERED: HYDROCHLOROTHIAZIDE 25MG TABLET PO ONE (22:45)
[2018-10-04] MEDS: CLONIDINE 0.1MG TABLET PO ONE ×2 (23:25→23:34)
[2018-10-05 01:19] VITALS: BP 151/66
== END 2018-10-05 01:47 | disposition home or self-care (01) ==
LOC: ER 17:00
DX: I16.0 Hypertensive urgency (principal); R51 Headache; I10 Essential (primary) hypertension; E11.9 Type 2 diabetes mellitus without complications; N28.9 Disorder of kidney and ureter, unspecified; I25.2 Old myocardial infarction; Z86.73 Personal history of transient ischemic attack (TIA), and cerebral infarction without residual deficits; Z99.2 Dependence on renal dialysis; Z79.82 Long term (current) use of aspirin; Z79.4 Long term (current) use of insulin; Z79.899 Other long term (current) drug therapy; Z88.0 Allergy status to penicillin; Z88.6 Allergy status to analgesic agent; Z98.890 Other specified postprocedural states
CPT/HCPCS: 99284

== ENCOUNTER 2019-04-08 10:50 | Emergency (ER) | payer MEDICARE, MEDICAID ==
[~2019-04-08] VITALS: Ht 162.6 cm; Wt 80.0 kg
[2019-04-08 12:29] LABS: BG BASE EXCESS 5.6 mmol/L (-2.0-2.0); BG CARBOXYHEMOGLOBIN 0.2 % (0.5-1.5); BG DEOXYHEMOGLOBIN 4.1 % (0.0-5.0); BG FRACTION INSPIRED OXYGEN 21; BG HCO3 ACT 29.5 mmol/L (22.0-26.0); BG METHEMOGLOBIN 0.3 % (0.0-1.5); BG OXYGEN SATURATION 95.9 % (92.0-98.5); BG OXYHEMOGLOBIN 95.4 % (94.0-97.0); BG PCO2 40.5 mmHg (35.0-45.0); BG PO2 78.4 mmHg (75.0-100.0); BG SAMPLE SITE RIGHT BRACHIAL; BG TOTAL HEMOGLOBIN 11.6 g/dL (12.0-18.0); BG VENT MODE ROOM AIR
[2019-04-08 21:26] VITALS: BP 149/71
== END 2019-04-08 13:11 | disposition left against medical advice (07) ==
LOC: ER 11:59
DX: Z77.098 Contact with and (suspected) exposure to other hazardous, chiefly nonmedicinal, chemicals (principal); R51 Headache
CPT/HCPCS: 36600; 82375; 82805; 83605; 99283

== ENCOUNTER 2019-05-06 14:23 | Emergency (ER) | payer MEDICARE, MEDICAID ==
[~2019-05-06] VITALS: Ht 149.9 cm; Wt 74.0 kg
[2019-05-06] MEDS ORDERED: ONDANSETRON HCL 4MG/2ML INJ IV STA (15:28)
[2019-05-06] MEDS ORDERED: SODIUM CHLORIDE 0.9% 250 ML IV ONE (15:28)
[2019-05-06] MEDS ORDERED: MORPHINE SULFATE 4 MG/ML CPJ (NOT FOR IM USE) IV STA (15:28)
[2019-05-06] MEDS ORDERED: CLONIDINE 0.2MG TABLET PO ONE (15:45)
[2019-05-06 16:07] LABS: BASOPHILS % 0.2 % (0.0-2.0); EOSINOPHILS % 4.9 % (0.0-5.0); HEMATOCRIT. 35.6 % (36.0-48.0); HEMOGLOBIN. 12.2 g/dL (12.0-16.0); LYMPHOCYTES % 30.7 % (20.0-50.0); MEAN CORPUSCULAR HEMOGLOBIN 33.5 pg (28.0-32.0); MEAN CORPUSCULAR VOLUME 97.7 fL (81.0-99.0); MEAN PLATELET VOLUME 8.2 fl (7.4-10.4); NEUTROPHILS % 57.2 % (40.0-76.0); PLATELET 164 x1000/uL (130-400); RED BLOOD CELL COUNT 3.65 mill/uL (4.2-5.4); RED CELL DISTRIBUTION WIDTH 16.3 % (11.6-14.6)
[2019-05-06 16:15] LABS: HCG SCREEN NEGATIVE
[2019-05-06 16:19] LABS: CHLORIDE 103 mEq/L (98-107)
[2019-05-06 16:46] LABS: CLARITY URINE CLEAR (CLEAR); COLOR URINE YELLOW (YELLOW); KETONES URINE NEGATIVE (NEGATIVE); LEUKOCYTE ESTERASE URINE NEGATIVE (NEGATIVE); NITRITE URINE NEGATIVE (NEGATIVE); OCCULT BLOOD URINE NEGATIVE (NEGATIVE); PH URINE 7.5 (4.5-8.0); PROTEIN URINE 4+ (NEGATIVE); SPECIFIC GRAVITY URINE 1.019 (1.005-1.030); UROBILINOGEN URINE 0.2 E.U./dL (0.2-1.0)
[2019-05-06 18:22] VITALS: BP 173/75
== END 2019-05-06 18:40 | disposition home or self-care (01) ==
LOC: ER 14:23
DX: M54.5 Low back pain (principal); R10.9 Unspecified abdominal pain; E11.22 Type 2 diabetes mellitus with diabetic chronic kidney disease; I12.0 Hypertensive chronic kidney disease with stage 5 chronic kidney disease or end stage renal disease; N18.6 End stage renal disease; I25.10 Atherosclerotic heart disease of native coronary artery without angina pectoris; Z99.2 Dependence on renal dialysis; Z79.4 Long term (current) use of insulin; Z86.73 Personal history of transient ischemic attack (TIA), and cerebral infarction without residual deficits; Z98.61 Coronary angioplasty status; Z79.82 Long term (current) use of aspirin; Z88.0 Allergy status to penicillin; Z88.8 Allergy status to other drugs, medicaments and biological substances
CPT/HCPCS: 36415; 71045; 74176; 80053; 81003; 84703; 85025; 87086; 93005; 96361; 96374; 96375; 99284; J2270; J2405; J7050

== ENCOUNTER 2019-05-15 13:11 | Inpatient (IN) | payer MEDICARE, MEDICAID ==
[~2019-05-15] VITALS: Ht 144.8 cm; Wt 72.6 kg
[2019-05-15 14:39] LABS: BASOPHILS % 0.5 % (0.0-2.0); EOSINOPHILS % 2.5 % (0.0-5.0); HEMATOCRIT. 30.8 % (36.0-48.0); HEMOGLOBIN. 10.6 g/dL (12.0-16.0); LYMPHOCYTES % 14.4 % (20.0-50.0); MEAN CORPUSCULAR HEMOGLOBIN 33.8 pg (28.0-32.0); MEAN CORPUSCULAR VOLUME 97.8 fL (81.0-99.0); MEAN PLATELET VOLUME 7.4 fl (7.4-10.4); MONOCYTES % 6.9 % (2.0-8.0); NEUTROPHILS % 75.7 % (40.0-76.0); PLATELET 188 x1000/uL (130-400); RED BLOOD CELL COUNT 3.15 mill/uL (4.2-5.4); RED CELL DISTRIBUTION WIDTH 15.7 % (11.6-14.6)
[2019-05-15 14:50] LABS: CHLORIDE 111 mEq/L (98-107)
[2019-05-15] MEDS ORDERED: HYDROCODONE/ACETAMINOPHEN 10/325MG TABLET PO ONE (19:15)
[2019-05-15] MEDS ORDERED: MAGNESIUM/ALUMINUM HYDROXIDE/SIMETHICONE 30ML UDC PO PRN (20:45)
[2019-05-15] MEDS ORDERED: ONDANSETRON HCL 4MG/2ML INJ IV PRN (20:45)
[2019-05-15] MEDS ORDERED: DOCUSATE SODIUM 100MG CAPSULE PO PRN (20:45)
[2019-05-15] MEDS ORDERED: IPRATROPIUM/ALBUTEROL 0.5-3(2.5)MG/3ML NEB NEB PRN (20:45)
[2019-05-15] MEDS ORDERED: ACETAMINOPHEN 325MG TABLET PO PRN (20:45)
[2019-05-15] MEDS ORDERED: GUAIFENESIN 200MG/10ML SUGAR FREE UDC PO PRN (20:45)
[2019-05-15] MEDS ORDERED: NA PHOS,M-B/NA PHOS,DI-BA ENEMA 118ML PR PRN (21:00)
[2019-05-15] MEDS: MORPHINE SULFATE 2 MG/ML CPJ (NOT FOR IM USE) IV PRN (22:28)
[2019-05-15] MEDS: CLONIDINE 0.1MG TABLET PO PRN (22:36)
[2019-05-15] MEDS ORDERED: ERGO400C PO (23:34)
[2019-05-15] MEDS ORDERED: CLOP75TA4 PO (23:35)
[2019-05-15 23:40] VITALS: BP 152/85
[2019-05-15] MEDS ORDERED: DEXTROSE 50% WATER 50ML SYRINGE IV PRN (23:45)
[2019-05-16] VITALS (7 sets, daily range): BP systolic 111–164; BP diastolic 57–78
[2019-05-16] MEDS: LORAZEPAM 2MG/ML CPJ IV PRN ×2 (00:48→20:06)
[2019-05-16 06:34] LABS: BASOPHILS % 0.6 % (0.0-2.0); EOSINOPHILS % 3.7 % (0.0-5.0); HEMATOCRIT. 31.1 % (36.0-48.0); HEMOGLOBIN. 10.4 g/dL (12.0-16.0); LYMPHOCYTES % 18.9 % (20.0-50.0); MEAN CORPUSCULAR VOLUME 98.3 fL (81.0-99.0); MEAN PLATELET VOLUME 8.4 fl (7.4-10.4); MONOCYTES % 6.8 % (2.0-8.0); PLATELET 209 x1000/uL (130-400); RED BLOOD CELL COUNT 3.16 mill/uL (4.2-5.4); RED CELL DISTRIBUTION WIDTH 15.7 % (11.6-14.6)
[2019-05-16] MEDS: BLOOD SUGAR DIAGNOSTIC STRIP TEST SCH ×4 (07:10→20:12)
[2019-05-16] MEDS: INSULIN LISPRO (MEDIUM DOSE) 100 UNITS/ML SUBCUT SCH ×5 (07:32→20:17)
[2019-05-16] MEDS: MORPHINE SULFATE 2 MG/ML CPJ (NOT FOR IM USE) IV PRN ×2 (08:55→23:52)
[2019-05-16 10:31] LABS: CHLORIDE 111 mEq/L (98-107)
[2019-05-16 10:42] LABS: LDL CHOLESTEROL 120 mg/dL (5-100)
[2019-05-16 10:43] LABS: HDL CHOLESTEROL 39 mg/dL (40-59)
[2019-05-16 10:57] LABS: T4 FREE 0.98 ng/dL (0.76-1.46)
[2019-05-16] MEDS: ENOXAPARIN 30MG/0.3ML SYR SUBCUT SCH (11:40)
[2019-05-16] MEDS: ASPIRIN 81MG EC TABLET PO SCH (11:40)
[2019-05-17 04:00] VITALS: BP 146/60
[2019-05-17] MEDS: BLOOD SUGAR DIAGNOSTIC STRIP TEST SCH ×4 (06:06→21:56)
[2019-05-17 06:30] LABS: BASOPHILS % 0.7 % (0.0-2.0); EOSINOPHILS % 3.9 % (0.0-5.0); HEMATOCRIT. 31.6 % (36.0-48.0); HEMOGLOBIN. 10.8 g/dL (12.0-16.0); MEAN CORPUSCULAR HEMOGLOBIN 33.1 pg (28.0-32.0); MEAN CORPUSCULAR VOLUME 97.1 fL (81.0-99.0); MONOCYTES % 8.4 % (2.0-8.0); PLATELET 206 x1000/uL (130-400); RED BLOOD CELL COUNT 3.26 mill/uL (4.2-5.4); RED CELL DISTRIBUTION WIDTH 15.4 % (11.6-14.6)
[2019-05-17] MEDS: HYDROCODONE/ACETAMINOPHEN 10/325MG TABLET PO PRN (06:32)
[2019-05-17] MEDS: INSULIN LISPRO (MEDIUM DOSE) 100 UNITS/ML SUBCUT SCH ×4 (06:33→22:13)
[2019-05-17 08:00] VITALS: BP 176/71
[2019-05-17] MEDS: ASPIRIN 81MG EC TABLET PO SCH (08:35)
[2019-05-17] MEDS: CLONIDINE 0.1MG TABLET PO PRN ×2 (08:35→13:11)
[2019-05-17] MEDS: ENOXAPARIN 30MG/0.3ML SYR SUBCUT SCH (08:35)
[2019-05-17 09:31] LABS: CHLORIDE 104 mEq/L (98-107)
[2019-05-17 12:01] VITALS: BP 172/76
[2019-05-17] MEDS: MORPHINE SULFATE 2 MG/ML CPJ (NOT FOR IM USE) IV PRN ×2 (12:03→22:00)
[2019-05-17] MEDS: LOSARTAN POTASSIUM 50 MG TABLET PO SCH (13:11)
[2019-05-17] MEDS ORDERED: LACTULOSE 20G/30ML UDC PO PRN (14:30)
[2019-05-17 16:00] VITALS: BP 150/73
[2019-05-17 20:00] VITALS: BP 146/57
[2019-05-17] MEDS: METOPROLOL TARTRATE 25MG TABLET PO SCH (22:00)
[2019-05-18] VITALS: BP 137/65
[2019-05-18 04:00] VITALS: BP 167/57
[2019-05-18] MEDS: DIPHENHYDRAMINE 50MG/ML VIAL IV PRN ×2 (04:16→08:59)
[2019-05-18] MEDS: CLONIDINE 0.1MG TABLET PO PRN (06:17)
[2019-05-18] MEDS: INSULIN LISPRO (MEDIUM DOSE) 100 UNITS/ML SUBCUT SCH ×2 (06:18→12:15)
[2019-05-18] MEDS: BLOOD SUGAR DIAGNOSTIC STRIP TEST SCH ×2 (07:10→12:00)
[2019-05-18 07:58] VITALS: BP 147/61
[2019-05-18] MEDS: ENOXAPARIN 30MG/0.3ML SYR SUBCUT SCH (08:59)
[2019-05-18] MEDS: LOSARTAN POTASSIUM 50 MG TABLET PO SCH (08:59)
[2019-05-18] MEDS: METOPROLOL TARTRATE 25MG TABLET PO SCH (09:00)
[2019-05-18] MEDS: ASPIRIN 81MG EC TABLET PO SCH (09:00)
[2019-05-18 12:00] VITALS: BP 146/75
[2019-05-18] MEDS: HYDROCODONE/ACETAMINOPHEN 10/325MG TABLET PO PRN (13:18)
[2019-05-18 14:10] VITALS: BP 164/71
== END 2019-05-18 15:40 | disposition home or self-care (01) | DRG 640 ==
LOC: ER 13:30 → 8WST 14:50 → ENRESERV 20:19
PROVIDERS: ADMIT Internal Medicine; ATTEND Internal Medicine
PROC: 5A1D70Z Performance of Urinary Filtration, Intermittent, Less than 6 Hours Per Day (ICD-10-PCS; 2019-05-15)
PROC: 5A1D70Z Performance of Urinary Filtration, Intermittent, Less than 6 Hours Per Day (ICD-10-PCS; 2019-05-16)
PROC: 5A1D70Z Performance of Urinary Filtration, Intermittent, Less than 6 Hours Per Day (ICD-10-PCS; principal; 2019-05-18)
DX: E87.5 Hyperkalemia (principal); N18.6 End stage renal disease; I13.2 Hypertensive heart and chronic kidney disease with heart failure and with stage 5 chronic kidney disease, or end stage renal disease; I25.10 Atherosclerotic heart disease of native coronary artery without angina pectoris; I50.9 Heart failure, unspecified; E78.5 Hyperlipidemia, unspecified; E11.22 Type 2 diabetes mellitus with diabetic chronic kidney disease; D64.9 Anemia, unspecified; R63.4 Abnormal weight loss; J44.9 Chronic obstructive pulmonary disease, unspecified; E11.51 Type 2 diabetes mellitus with diabetic peripheral angiopathy without gangrene; Z99.2 Dependence on renal dialysis; Z82.49 Family history of ischemic heart disease and other diseases of the circulatory system; Z87.891 Personal history of nicotine dependence; Z87.442 Personal history of urinary calculi; Z86.73 Personal history of transient ischemic attack (TIA), and cerebral infarction without residual deficits; I25.2 Old myocardial infarction; Z95.5 Presence of coronary angioplasty implant and graft; Z79.02 Long term (current) use of antithrombotics/antiplatelets; Z79.4 Long term (current) use of insulin; Z79.82 Long term (current) use of aspirin; Z79.899 Other long term (current) drug therapy; Z88.0 Allergy status to penicillin; Z88.8 Allergy status to other drugs, medicaments and biological substances
CPT/HCPCS: 36415; 71045; 80048; 80053; 80061; 82962; 83735; 83880; 84439; 84443; 84484; 85025; 93005; 93306; 99285; J1200; J1650; J1815; J2060; J2270

== ENCOUNTER 2019-06-14 14:10 | Emergency (ER) | payer MEDICARE, MEDICAID ==
[~2019-06-14] VITALS: Ht 157.5 cm; Wt 75.0 kg
[~2019-06-14 14:10] MED LIST changes: +CLOP75TA4 PO; +ERGO400C PO
[2019-06-14] MEDS ORDERED: KETOROLAC 60MG/2ML VIAL IM STA (16:07)
[2019-06-14] MEDS ORDERED: DIPHENHYDRAMINE 25MG CAPSULE PO ONE (16:15)
[2019-06-14 16:19] VITALS: BP 128/76
[2019-06-14 17:09] LABS: CHLORIDE 99 mEq/L (98-107)
[2019-06-14 17:11] LABS: INR 0.9; PROTHROMBIN TIME 9.7 sec (9.6-11.0)
[2019-06-14 17:12] LABS: BASOPHILS % 0.9 % (0.0-2.0); EOSINOPHILS % 4.1 % (0.0-5.0); HEMATOCRIT. 36.9 % (36.0-48.0); HEMOGLOBIN. 12.7 g/dL (12.0-16.0); LYMPHOCYTES % 34.4 % (20.0-50.0); MEAN CORPUSCULAR HEMOGLOBIN 33.6 pg (28.0-32.0); MEAN CORPUSCULAR VOLUME 97.5 fL (81.0-99.0); MEAN PLATELET VOLUME 8.3 fl (7.4-10.4); NEUTROPHILS % 52.6 % (40.0-76.0); PLATELET 185 x1000/uL (130-400); RED BLOOD CELL COUNT 3.79 mill/uL (4.2-5.4); RED CELL DISTRIBUTION WIDTH 15.8 % (11.6-14.6)
== END 2019-06-14 21:10 | disposition home or self-care (01) ==
LOC: ER 14:10
DX: K59.00 Constipation, unspecified (principal); N20.0 Calculus of kidney; K76.0 Fatty (change of) liver, not elsewhere classified; I25.2 Old myocardial infarction; I12.0 Hypertensive chronic kidney disease with stage 5 chronic kidney disease or end stage renal disease; E11.22 Type 2 diabetes mellitus with diabetic chronic kidney disease; N18.6 End stage renal disease; Z99.2 Dependence on renal dialysis; Z86.73 Personal history of transient ischemic attack (TIA), and cerebral infarction without residual deficits; Z98.890 Other specified postprocedural states; Z79.899 Other long term (current) drug therapy; Z88.0 Allergy status to penicillin; Z79.4 Long term (current) use of insulin; Z88.6 Allergy status to analgesic agent
CPT/HCPCS: 36415; 74021; 76705; 80053; 83690; 85025; 85610; 96372; 99285; J1885; Q0163

== ENCOUNTER 2019-09-17 20:43 | Emergency (ER) | payer MEDICARE, MEDICAID ==
[~2019-09-17] VITALS: Ht 165.1 cm; Wt 100.0 kg
[2019-09-18] MEDS ORDERED: MORPHINE SULFATE 4 MG/ML CPJ (NOT FOR IM USE) IV STA (00:16)
[2019-09-18] MEDS ORDERED: ONDANSETRON HCL 4MG/2ML INJ IV STA (00:16)
[2019-09-18 01:13] LABS: CHLORIDE 100 mEq/L (98-107)
[2019-09-18 01:23] LABS: BASOPHILS % 0.9 % (0.0-2.0); EOSINOPHILS % 1.8 % (0.0-5.0); HEMATOCRIT. 35.9 % (36.0-48.0); HEMOGLOBIN. 12.5 g/dL (12.0-16.0); LYMPHOCYTES % 27.8 % (20.0-50.0); MEAN CORPUSCULAR HEMOGLOBIN 33.8 pg (28.0-32.0); MEAN CORPUSCULAR VOLUME 97.4 fL (81.0-99.0); MEAN PLATELET VOLUME 7.9 fl (7.4-10.4); MONOCYTES % 6.4 % (2.0-8.0); NEUTROPHILS % 63.1 % (40.0-76.0); PLATELET 215 x1000/uL (130-400); RED BLOOD CELL COUNT 3.69 mill/uL (4.2-5.4); RED CELL DISTRIBUTION WIDTH 16.7 % (11.6-14.6)
[2019-09-18 01:29] LABS: HCG SCREEN NEGATIVE
[2019-09-18] MEDS ORDERED: LORAZEPAM 2MG/ML CPJ IV SCH (03:15)
[2019-09-18] MEDS ORDERED: MORPHINE SULFATE 4 MG/ML CPJ (NOT FOR IM USE) IV SCH (03:15)
[2019-09-18 05:53] VITALS: BP 162/69
== END 2019-09-18 05:55 | disposition home or self-care (01) ==
LOC: ER 20:43
DX: M62.838 Other muscle spasm (principal); I12.0 Hypertensive chronic kidney disease with stage 5 chronic kidney disease or end stage renal disease; E11.22 Type 2 diabetes mellitus with diabetic chronic kidney disease; N18.6 End stage renal disease; Z79.4 Long term (current) use of insulin; Z88.0 Allergy status to penicillin; Z88.6 Allergy status to analgesic agent; Z99.2 Dependence on renal dialysis; Z79.82 Long term (current) use of aspirin; Z86.73 Personal history of transient ischemic attack (TIA), and cerebral infarction without residual deficits
CPT/HCPCS: 36415; 71045; 80053; 83605; 83690; 84484; 84703; 85025; 87040; 93005; 96374; 96375; 96376; 99285; J2060; J2270; J2405